=== PATIENT | male | born 1955 | race Caucasian/White ===

== ENCOUNTER 2017-03-27 14:16 | Inpatient (IN) | payer OTHER ==
[~2017-03-27] VITALS: Ht 177.8 cm; Wt 76.8 kg
--- NOTE | 2017-03-27 14:49 | ED UPPER/LOWER EXTREMITY COMPL ---
See Addendum History of Present Illness General Chief Complaint: Lower Extremity Problems Stated Complaint: RLE PAIN, NKI Source: patient Exam Limitations: no limitations Vital Signs & Intake/Output Vital Signs & Intake/Output Vital Signs Date Time Temp Pulse Resp B/P B/P Pulse O2 O2 Flow FiO2 Mean Ox Delivery Rate 03/279 120 24 98 03/27 1645 98.4 88 22 122/78 98 03/27 1508 Room Air 03/27 1423 98.2 141 20 121/84 95 Room Air Room Air Allergies Coded Allergies: No Known Allergies (03/27/17) Triage Note: PT TO ED FOR C/C OF R LEG PAIN THAT STARTED 2 DAYS AGO. PT DENIES INJURY TO THE LEG. PT RECENTLY DIAGNOSED WITH PANCREATIC CANCER 3 WEEKS AGO AND IS IN THE PROCESS OF MEETING WITH AN ONCOLOGIST. PT IS NOT BEING TREATED CURRENTLY FOR THE CA. THE LEG PAIN IS MOSTLY IN THE CALF AREA. ALSO REPORTS INCREASED SOB WITH EXERTION WHICH IS NOT TYPICAL FOR PT. PT TACHYCARDIC IN TRIAGE 140'S. PT SLIGHTLY TACHYPNIC WELL. Triage Nurses Notes Reviewed? yes HPI: Mr. Garcia is a 62-year-old male with a past medical history significant for nicotine dependence, suspected pancreatic and liver cancer who presents to the ED with bilateral lower extremity pain and dyspnea for last 3 days. He reports he noticed worsening SOB with going up and down the stairs. He is currently not working and has had a decrease in activity. He has a poor appetite and noticed about a 20 pound weight loss since last summer. Patient reports a few weeks ago he noticed his skin was jaundiced. He visited Dr. Britton Gibbs who performed an ERCP with stent placement in his CBD. His jaundice subsequently resolved. He had a follow up CT abd/pelvis that was suspicious for pancreatic cancer. He recently established care with Dr. Hawley and a pancreatic biopsy was taken but has not received the results. Patient reports he had a colonoscopy last week with a polypectomy but yet to receive the results. He is currently not on chemotherapy or radiation. He also reports he stopped taking his metformin for 2 days in preparation for any further medical intervention. He denies trauma, CP, palpitations, fever, chills, lower extremity swelling, nausea, vomiting, urinary or bowel symptoms (Jordan ERICKSON,[facility]) Reconcile Medications Aspirin (Ecotrin*) 81 MG TABLET.DR 1 TAB PO DAILY HEART/BLOOD (Reported) Cholecalciferol (Vitamin D3) (Vitamin D) (Unknown Strength) TABLET (Unknown Dose) PO DAILY SUPPLEMENT (Reported) Metformin HCl (Metformin HCl ER) 500 MG TAB.ER.24H 1 TAB PO DAILY DM ( Reported) Multiple Vitamin (Multivitamins) 1 EACH TABLET 1 TAB PO DAILY SUPPLEMENT ( Reported) [place]-3 Fatty Acids/Fish Oil (Fish Oil 1,000 MG Softgel) (Unknown Strength) CAPSULE (Unknown Dose) PO DAILY SUPPLEMENT (Reported) Zolpidem Tartrate 5 MG TABLET 1 TAB PO QHS SLEEP (Reported) (Bethany ERICKSON,Tres Lerner) Past History Travel History Traveled to [place] past 21 day No Medical History Any Pertinent Medical History? see below for history Endocrine: ON METFORMIN FOR SUGAR CONTROL R/T PANCREATIC CA. Cancer(s): PANCREATIC CANCER Surgical History Surgical History: colon resection Psychosocial History What is your primary language Greek Tobacco Use: Current Daily Use Daily Tobacco Use Amount/Type: => 5 Cigarettes daily ETOH Use: denies use Illicit Drug Use: denies illicit drug use Family History Hx Contributory? Yes (Jordan ERICKSON,Kimberlyn) Review of Systems Review of Systems Constitutional: Reports: see HPI. (Jordan ERICKSON,Kimberlyn) Physical Exam Physical Exam General Appearance: well developed/nourished, no apparent distress, alert, comfortable Head: atraumatic, normal appearance Eyes: Bilateral: normal appearance, PERRL, EOMI. Ears, Nose, Throat: normal pharynx, normal ENT inspection, hearing grossly normal Neck: normal inspection, supple, full range of motion Cardiovascular/Respiratory: normal breath sounds Gastrointestinal: normal BS, nontender, external hemorrhoids Leg Left: tenderness Leg Right: tenderness Comments: Guaiac negative (Jordan ERICKSON,Kimberlyn) Progress Differential Diagnosis: arterial insufficiency, cellulitis, DVT Plan of Care: Orders Procedure Date/time Status Regular Diet 03/28 B Active Heart Healthy Diet 03/27 D Complete Admit to inpatient 03/27 1931 Active ED Holding Orders 03/27 185 Active Code Status 03/27 1857 Active Patient Data 03/27 1853 Active Lab Add-on Test 03/27 1825 Active Lab Add-on Test 03/27 1822 Active TROPONIN LEVEL 03/27 1800 Complete TROPONIN LEVEL 03/27 1505 Complete PARTIAL THROMBOPLASTIN TIME 03/27 1505 Complete PROTHROMBIN TIME 03/27 1505 Complete LIPASE 03/27 1505 Complete HEPATIC FUNCTION PANEL 03/27 1505 Complete AMYLASE 03/27 1505 Complete Add-on Test (ER Only) 03/27 1500 Active D-DIMER 03/27 1500 Complete CBC WITHOUT DIFFERENTIAL 03/27 1500 Complete BASIC ELECTROLYTES PLUS BUN&CR 03/27 1500 Complete EKG 03/27 1432 Active Misc Message 03/27 UNK Active Vital Signs 03/27 UNK Active Current Medications Sig/Elijah Start time Last Medication Dose Stop Time Status Admin Heparin Sodium 25,000 UNIT Q24H 03/27 1700 UNVr 03/27 (Porcine) 1753 (Heparin) Sodium Chloride 500 ML Morphine Sulfate 2 MG ONCE ONE 03/27 1500 CAN (Morphine) 03/27 1501 Laboratory Tests 03/27/17 1840: Troponin I 0.04 03/27/17 1505: Anion Gap 16, Estimated GFR > 60, BUN/Creatinine Ratio 12.9, Total Bilirubin 1.6 H, Direct Bilirubin 1.0 H, AST 28, ALT 38, Alkaline Phosphatase 298 H, Troponin I < 0.01, Total Protein 6.9, Albumin 4.0, Amylase 31, Lipase 99, PT 14.4 H, INR 1.38 H, APTT 36, D-Dimer High Sensitivty 27897 H, CBC w Diff MAN DIFF ORDERED, RBC 4.97, MCV 100.9 H, MCH 33.9 H, MCHC 33.6, RDW 13.0, MPV 9.1, Gran % 82.9 H, Lymphocytes % 9.2 L, Monocytes % 7.0, Eosinophils % 0.8, Basophils % 0.1, Absolute Granulocytes 15.2 H, Absolute Lymphocytes 1.7, Absolute Monocytes 1.3 H, Absolute Eosinophils 0.1, Absolute Basophils 0, Platelet Estimate ADEQUATE, Normochromic RBCs VERIFIED, Macrocytic Cells 1+ Initial ED EKG: sinus tachycardia, [id number] Comments: 03/27/2017 6:30 pm vascular surgery service called for further evaluation of extensive DVT (Jordan ERICKSON,Kimberlyn) Comments: 03/27/2017 4:31:34 PM PER RADIOLOGIST: EXTENSIVE THROMBUS RLE, SUPERFICIAL ON LLE, CHEST EXTENSIVE PE. NO SADDLE OR RIGHT HEART STRAIN. 03/27/2017 5:12:35 PM IV heparin ordered. Patient remains clinically and hemodynamically stable. He has no specific complaint at this time. He has been updated on exam findings. I do not feel he requires TPA. Awaiting callback from hospitalist. 03/27/2017 5:56:48 PM awaiting callback from hospitalist. (Bethany ERICKSON,Tres Lerner) Departure Departure Condition: Stable Clinical Impression Primary Impression: Pulmonary emboli Qualifiers: Pulmonary embolism type: other Chronicity: unspecified Acute cor pulmonale presence: without acute cor pulmonale Qualified Code: I26.99 - Other pulmonary embolism without acute cor pulmonale Secondary Impressions: DVT (deep venous thrombosis) Qualifiers: DVT location: lower extremity Affected thrombotic vein of extremity : other lower extremity vein Chronicity: unspecified Laterality: unspecified laterality Qualified Code: I82.499 - Acute embolism and thrombosis of other specified deep vein of unspecified lower extremity Referrals: Kathy Silva MD (PCP/Family) Departure Forms: Customer Survey General Discharge Information Admission Note Spoke With: Zulma Julian MD Documentation of Exam: Documentation of any treatments & extenuating circumstances including Concerns Regarding Discharge (functional status, medication knowledge or non-compliance, living conditions, etc.) that warrant an admission rather than observation: Given patient's history and extensive DVT patient is a poor candidate for outpatient management, patient's condition may result in worsening respiratory failure and/or , patient will require vascular consultation, IV heparin, telemetry monitoring (Kimberlyn Ortega MD) Departure Disposition: STILL A PATIENT Admission Note Documentation of Exam: Documentation of any treatments & extenuating circumstances including Concerns Regarding Discharge (functional status, medication knowledge or non-compliance, living conditions, etc.) that warrant an admission rather than observation: Resident Co-Sign Statement Statement: ED Attending supervision documentation- [x] I saw and evaluated the patient. I have also reviewed all the pertinent lab results and diagnostic results. I agree with the findings and the plan of care as documented in the Resident's documentation. Patient presents for evaluation of worsening right calf pain. History of recent diagnosis of pancreatic cancer. Patient also experienced shortness of breath when walking up the stairs. Physical examination reveals tenderness of the proximal right calf and popliteal fossa. [] I have reviewed the ED Record and agree with the Resident's documentation. [] Additions or exceptions (if any) to the Resident's note and plan are summarized below: [] (Bethany ERICKSON,Tres Lerner) Critical Care Note Critical Care Note Critical Care Time: 30-74 min (Bethany ERICKSON,Tres Lerner)
[2017-03-27 15:12] LABS: ABSOLUTE BASOPHIL COUNT 0 /CUMM (0.0-0.2); ABSOLUTE EOSINOPHIL COUNT 0.1 /CUMM (0.0-0.7); ABSOLUTE GRANULOCYTE CT 15.2 /CUMM (1.4-6.5); ABSOLUTE LYMPH COUNT 1.7 /CUMM (1.2-3.4); ABSOLUTE MONOCYTE COUNT 1.3 /CUMM (0.10-0.60); BASOPHIL % 0.1 % (0.0-2.0); EOSINOPHIL % 0.8 % (0-5); GRANULOCYTE % 82.9 % (42.2-75.2); HEMATOCRIT 50.1 % (42-52); MEAN CORPUSCULAR HGB 33.9 PG (27.0-31.0); MEAN CORPUSCULAR HGB CONC 33.6 G/DL (33.0-37.0); MEAN CORPUSCULAR VOLUME 100.9 FL (80.0-94.0); MEAN PLATELET VOLUME 9.1 FL (7.4-10.4); PLATELET COUNT 167 /CUMM (130-400); RED BLOOD CELL CT 4.97 /CUMM (4.70-6.10); WHITE BLOOD CELL COUNT 18.3 /CUMM (4.8-10.8)
[2017-03-27] MEDS ORDERED: ZOLPIDEM TARTRAT5 M1 PO (15:25)
[2017-03-27] MEDS ORDERED: METFORMIN HCL500 M4 PO (15:25)
[2017-03-27] MEDS ORDERED: MULTIVITAMINS1 EAC9 PO (15:26)
[2017-03-27] MEDS ORDERED: FISH OIL 1,0001 EAC1 PO (15:26)
[2017-03-27] MEDS ORDERED: VITAMIN D1000 UNIT PO (15:26)
[2017-03-27] MEDS ORDERED: ASPIRIN EC81 M1 PO (15:27)
--- NOTE | 2017-03-27 16:35 | ULTRASOUND REPORT ---
EXAMINATION: US TRIPLEX OF LOWER EXTREMITIES, BILATERAL CLINICAL INFORMATION: Postop. Leg tenderness. COMPARISON: None TECHNIQUE: Color-flow triplex imaging with spectral analysis and compression Doppler were performed on the lower extremities. FINDINGS: There is diffuse occlusive thrombus in the right lower extremity from the groin through the popliteal fossa.. Thrombus extends into the upper calf veins. There is no thrombus of the deep veins left lower extremity. There is however thrombus in the greater saphenous vein at the upper thigh. There is no Lauren's cyst. IMPRESSION: 1. Right lower extremity. Extensive occlusive thrombus from the groin through the upper calf. 2. Left lower extremity: Thrombus in the greater saphenous vein in the upper medial thigh but no deep vein thrombosis. This critical result was discussed with Dr. Gleason on 03/27/2017, 4:30 PM and it was ascertained that the content and urgency of the report was understood at the time of direct communication.
--- NOTE | 2017-03-27 16:51 | CT SCAN REPORT ---
EXAMINATION: CT ANGIOGRAM CHEST WITHOUT AND WITH CONTRAST (CT PULMONARY ANGIOGRAM FOR PE) CLINICAL INFORMATION: Shortness of breath, right leg pain, history of cancer. COMPARISON: CT scan abdomen and pelvis 01/14/2017. Ultrasound liver biopsy 03/19/2017. TECHNIQUE: Prior to contrast administration, noncontrast localization images were obtained. Subsequently, multidetector volumetric imaging was performed from the thoracic inlet to below the diaphragms following the administration of 95 mL Optiray 320 intravenous contrast. No contrast reaction reported. Sagittal, coronal, and MIP oblique sagittal reformatted images were obtained on the CT workstation, uploaded to PACS, and reviewed. TOTAL EXAM DLP: 359.86 mGy-cm. FINDINGS: QUALITY OF STUDY/CONTRAST BOLUS: Satisfactory PULMONARY ARTERIES: There are bilateral pulmonary emboli. Extensive emboli are seen in the distal right pulmonary artery extending into the secondary and tertiary branches of the right lower lobe and right upper lobe. There are small emboli also in the left lower lobe involving the tertiary and more peripheral pulmonary arterial branches. Small emboli also in the pulmonary arteries of the lingula and left upper lobe distally. THORACIC AORTA: No aneurysm or dissection. LUNG: Small patchy parenchymal consolidation dependent right lower lobe at the costophrenic angle. PLEURA: No pleural effusion or pneumothorax. MEDIASTINUM: Normal heart size. No pericardial effusion. No hilar or mediastinal lymphadenopathy. No evidence of septal bowing or right heart strain. CHEST WALL/AXILLA: No axillary or internal mammary lymphadenopathy. OSSEOUS STRUCTURES: Degenerative spondylosis of spine with multilevel endplate spurring of the vertebrae. UPPER ABDOMEN: Stent in the CBD. There is pneumobilia in the liver. There are multiple focal low attenuating masses in the liver. Largest in the posterior right lobe measuring 2 cm. The left adrenal gland is full, but without distinct nodule. Right adrenal gland is normal. IMPRESSION: 1. Bilateral pulmonary emboli. 2. Multiple liver masses consistent with metastatic disease. CBD stent in place with pneumobilia. 3. Small right lower lobe infiltrate at the dependent right lung. This critical result was discussed with Dr. Gleason on 03/27/2017, 4:30 PM and it was ascertained that the content and urgency of the report was understood at the time of direct communication. VTE: Positive
[2017-03-27 18:51] LABS: PT 14.4 SEC (9.4-12.5); PTT 36 SEC (25-37)
--- NOTE | 2017-03-27 19:15 | Cons- Vascular Surgery ---
Sabra Cobos 03/27/17 1912: General Information and HPI Consulting Request Date of Consult: 03/27/17 Requested By: ED Reason for Consult: PE and DVT History of Present Illness: 62M newly diagnosed with pancreatic cancer, likely metastatic to liver, presents to ED c/o severe right leg pain worsening over last few days. Was trying to wait until onc appt tomorrow, but pain was so severe that he presented to ED. Denies CP or SOB now, though does admit to SOB on exertion and general fatigue. Denies hx VTE or clotting disorders, denies surgical hx other than recent IR liver biopsy and colonoscopy this month. Denies n/v/f/c, though is anxious during this interview. Of note, he is awaiting pathology results from recent liver bx from Dr. Hawley, and is unaware that it is adenocarcinoma. Allergies/Medications Allergies: Coded Allergies: No Known Allergies (03/27/17) Past History Medical History Endocrine: takes metformin 2/2 panc ca glucose control Cancer(s): pancreatic cancer (liver mets) Psychosocial History Services at Home: None Smoking Status: Current Everyday Smoker (1 ppd x25yrs) ETOH Use: occasional use (2x/week) Illicit Drug Use: denies illicit drug use Functional Ability Ambulation: independent Exam & Diagnostic Data Vital Signs and I&O Vital Signs Date Time Temp Pulse Resp B/P B/P Pulse O2 O2 Flow FiO2 Mean Ox Delivery Rate 03/27 1645 98.4 88 22 122/78 98 03/27 1508 Room Air 03/27 1423 98.2 141 20 121/84 95 Room Air Room Air Intake & Output 03/27 1600 03/27 0800 03/27 0000 03/26 1600 03/26 0800 03/26 0000 Intake Total Output Total Balance Patient 178 lb Weight Weight Reported by Patient Measurement Method Physical Exam: GEN- NAD, awake, alert, orientated CARD- s1s2 tachy PULM- CTAB ABD- nt, nd, soft EXT- palp dp/pt bl, calves soft bl, right lower calf ttp, skin intact without lesions Last 24 Hours of Labs: Laboratory Tests 03/27 03/27 1840 1505 Chemistry Sodium (137 - 145 mmol/L) 139 Potassium (3.5 - 5.1 mmol/L) 4.1 Chloride (98 - 107 mmol/L) 99 Carbon Dioxide (22 - 30 mmol/L) 24 Anion Gap (5 - 16) 16 BUN (9 - 20 mg/dL) 9 Creatinine (0.7 - 1.2 mg/dL) 0.7 Estimated GFR (>60 ml/min) > 60 BUN/Creatinine Ratio (7 - 25 %) 12.9 Total Bilirubin (0.2 - 1.3 mg/dL) 1.6 H Direct Bilirubin (< 0.4 mg/dL) 1.0 H AST (17 - 59 U/L) 28 ALT (21 - 72 U/L) 38 Alkaline Phosphatase (< 127 U/L) 298 H Troponin I (<0.11 ng/ml) Pending < 0.01 Total Protein (6.3 - 8.2 g/dL) 6.9 Albumin (3.5 - 5.0 g/dL) 4.0 Amylase (30 - 110 U/L) 31 Lipase (23 - 300 U/L) 99 Coagulation PT (9.4 - 12.5 SEC) 14.4 H INR (0.90 - 1.17) 1.38 H APTT (25 - 37 SEC) 36 D-Dimer High Sensitivty (0 - 243 ng/ml) 87655 H Hematology CBC w Diff MAN DIFF ORDERED WBC (4.8 - 10.8 /CUMM) 18.3 H RBC (4.70 - 6.10 /CUMM) 4.97 Hgb (14.0 - 18.0 G/DL) 16.9 Hct (42 - 52 %) 50.1 MCV (80.0 - 94.0 FL) 100.9 H MCH (27.0 - 31.0 PG) 33.9 H MCHC (33.0 - 37.0 G/DL) 33.6 RDW (11.5 - 14.5 %) 13.0 Plt Count (130 - 400 /CUMM) 167 MPV (7.4 - 10.4 FL) 9.1 Gran % (42.2 - 75.2 %) 82.9 H Lymphocytes % (20.5 - 51.1 %) 9.2 L Monocytes % (1.7 - 9.3 %) 7.0 Eosinophils % (0 - 5 %) 0.8 Basophils % (0.0 - 2.0 %) 0.1 Absolute Granulocytes (1.4 - 6.5 /CUMM) 15.2 H Absolute Lymphocytes (1.2 - 3.4 /CUMM) 1.7 Absolute Monocytes (0.10 - 0.60 /CUMM) 1.3 H Absolute Eosinophils (0.0 - 0.7 /CUMM) 0.1 Absolute Basophils (0.0 - 0.2 /CUMM) 0 Platelet Estimate (ADEQUATE) ADEQUATE Normochromic RBCs VERIFIED Macrocytic Cells 1+ Imaging Results: SERVICE DATE: 03/27/17-1520 EXAM TYPE: US - US-EXT BILAT VENOUS DOPPLER EXAMINATION: US TRIPLEX OF LOWER EXTREMITIES, BILATERAL CLINICAL INFORMATION: Postop. Leg tenderness. COMPARISON: None TECHNIQUE: Color-flow triplex imaging with spectral analysis and compression Doppler were performed on the lower extremities. FINDINGS: There is diffuse occlusive thrombus in the right lower extremity from the groin through the popliteal fossa.. Thrombus extends into the upper calf veins. There is no thrombus of the deep veins left lower extremity. There is however thrombus in the greater saphenous vein at the upper thigh. There is no Lauren's cyst. IMPRESSION: 1. Right lower extremity. Extensive occlusive thrombus from the groin through the upper calf. 2. Left lower extremity: Thrombus in the greater saphenous vein in the upper medial thigh but no deep vein thrombosis. SERVICE DATE: 03/27/17-1448 EXAM TYPE: CAT - CTA CHEST-PULMONARY EMBOLISM EXAMINATION: CT ANGIOGRAM CHEST WITHOUT AND WITH CONTRAST (CT PULMONARY ANGIOGRAM FOR PE) CLINICAL INFORMATION: Shortness of breath, right leg pain, history of cancer. COMPARISON: CT scan abdomen and pelvis 01/14/2017. Ultrasound liver biopsy 03/19/2017. TECHNIQUE: Prior to contrast administration, noncontrast localization images were obtained. Subsequently, multidetector volumetric imaging was performed from the thoracic inlet to below the diaphragms following the administration of 95 mL Optiray 320 intravenous contrast. No contrast reaction reported. Sagittal, coronal, and MIP oblique sagittal reformatted images were obtained on the CT workstation, uploaded to PACS, and reviewed. TOTAL EXAM DLP: 359.86 mGy-cm. FINDINGS: QUALITY OF STUDY/CONTRAST BOLUS: Satisfactory PULMONARY ARTERIES: There are bilateral pulmonary emboli. Extensive emboli are seen in the distal right pulmonary artery extending into the secondary and tertiary branches of the right lower lobe and right upper lobe. There are small emboli also in the left lower lobe involving the tertiary and more peripheral pulmonary arterial branches. Small emboli also in the pulmonary arteries of the lingula and left upper lobe distally. THORACIC AORTA: No aneurysm or dissection. LUNG: Small patchy parenchymal consolidation dependent right lower lobe at the costophrenic angle. PLEURA: No pleural effusion or pneumothorax. MEDIASTINUM: Normal heart size. No pericardial effusion. No hilar or mediastinal lymphadenopathy. No evidence of septal bowing or right heart strain. CHEST WALL/AXILLA: No axillary or internal mammary lymphadenopathy. OSSEOUS STRUCTURES: Degenerative spondylosis of spine with multilevel endplate spurring of the vertebrae. UPPER ABDOMEN: Stent in the CBD. There is pneumobilia in the liver. There are multiple focal low attenuating masses in the liver. Largest in the posterior right lobe measuring 2 cm. The left adrenal gland is full, but without distinct nodule. Right adrenal gland is normal. IMPRESSION: 1. Bilateral pulmonary emboli. 2. Multiple liver masses consistent with metastatic disease. CBD stent in place with pneumobilia. 3. Small right lower lobe infiltrate at the dependent right lung. VTE: Positive Assessment/Plan Assessment/Plan A- 62yoM with metastatic pancreatic ca, with BL PE and RLE DVT, stable. P- - no surgical intervention at this time in setting of cancer - recommend anticoagulation for VTE tx - CODY stockings - fu as outpt in [address] Rayray Bryan for repeat imaging - dw Dr. Bryan. Please call if further vascular input needed Consult Acknowledgment - Thank you for your consult request. Rayray Bryan MD 03/30/17 1151: General Information and HPI Allergies/Medications Home Med List: Apixaban (Eliquis) 5 MG TABLET 0 PO SEE ADMIN CRITERIA BLOOD THINNER FOR PE, DVT TAKE TWO TAB TWICE DAILY FOR SEVEN DAYS (03/29/17-04/04/17). THEN TAKE ONE TAB TWICE DAILY FROM 04/05/17 ONWARDS. TO CONTINUE. Aspirin (Ecotrin*) 81 MG TABLET. 1 TAB PO DAILY HEART/BLOOD (Reported) Cholecalciferol (Vitamin D3) (Vitamin D) 1,000 UNIT TABLET 1 TAB PO DAILY SUPPLEMENT (Reported) Metformin HCl (Metformin HCl ER) 500 MG TAB.ER.24H 1 TAB PO DAILY DM ( Reported) Multiple Vitamin (Multivitamins) 1 EACH TABLET 1 TAB PO DAILY SUPPLEMENT ( Reported) [place]-3 Fatty Acids/Fish Oil (Fish Oil 1,000 MG Softgel) (Unknown Strength) CAPSULE (Unknown Dose) PO DAILY SUPPLEMENT (Reported) Oxycodone HCl/Acetaminophen (Percocet 5-325 MG Tablet) 5 MG-325 MG TABLET 1 TAB PO Q8 PRN PAIN . Zolpidem Tartrate 5 MG TABLET 1 TAB PO QHS SLEEP (Reported) Exam & Diagnostic Data Vital Signs and I&O Vital Signs Date Time Temp Pulse Resp B/P B/P Pulse O2 O2 Flow FiO2 Mean Ox Delivery Rate 03/29 1441 97.9 114 20 132/70 95 Room Air Intake & Output 03/30 1600 03/30 0800 03/30 0000 03/29 1600 03/29 0800 03/29 0000 Intake Total 900 305 450 Output Total Balance 900 305 450 Intake, IV 100 185 100 Intake, Oral 800 120 350 Number 0 Bowel Movements Patient 76.799 kg Weight Assessment/Plan Consult Acknowledgment - Thank you for your consult request. Attending MD Review Statement Attending Statement Attending MD Statement: agreed w/resident/PA/[employer] SUPERVISOR Attending Assessment/Plan: He has right leg DVT with left leg STP, along with pulmonary emboli. Given his active malignancy, he is at extremely high risk for clot propagation, and needs to be treated with anticoagulation to decrease risk of clot propagation, especially in the pulmonary arteries. Venous recanalization is contraindicated given the active malignancy, due to the significant risk of tumor bleeding with thrombolytic therapy, even if catheter directed. No indication for caval interruption as long as he can be maintained on anticoagulation. Compression, mobilization encouraged once on anticoagulation. Surveillance duplex in 1 week.
--- NOTE | 2017-03-27 20:38 | History & Physical ---
Sincere Vega 03/27/172037: General Information and HPI MD Statement: I have seen and personally examined VIRAJ DOMINGUEZ and documented this H&P. The patient is a 62 year old M who presented with a patient stated chief complaint of Source of Information: patient, family Exam Limitations: no limitations History of Present Illness: Mr Snell is a 62 year old man who was know to be in his usual state of health until a few months ago. He came in to the ER w/ a chief concern of pain in his right lower extremity that started two days ago. He has not seen a physician in over 20 yrs, and was diagnsosed w/ HLD and T2DM a few months ago by his new PCP, Dr Silva. Approximately 3-4 months ago, he noticed that he had moderate fatigue, unintentinal weight loss 10-15 lbs, dark urine, ligh stools, jaundice and intermittent brbpr. He was seen in the ER on 01/13/2017 when he was found to have bilirubin of 21.[address] scan abdomen showed ill-defined 3cm lesion in pancreatic head producing both hepatic and pancreatic ductal dilation. He underwent ERCP with sphincterotomy, brush cytology and stenting of CBD by Dr. Britton Gibbs for the tx of CBD stricuture. Cytology results revealed s/o ductal adenocarcinoma. As a follow up, he underwent his first screening colonocopy which revealed a polyp ( pathology pending ), an no other suspicious lesions; also had a liver biopsy that revealed moderatedly differentiated adenocarcinoma which were cytokeratin 7 positive, and weakly positive for cytokeratin 20, and negative for cdx 2 with no clear primary origin, likely biliary but clearly negative GI. In the last few days, he has been having pain in his lower extremities R>L, but did not have any injury or prolonged bed rest, however reported decreased activity in the last few weeks. No erythema, but reported mild swelling of this right calf and mild pedal edema. He reported dyspnea while doing daily chores, that progressed in the last few weeks to dyspnea at rest. No chest pain, palpitations. No syncope or loss of consciousness. Current smoker w/ 40 plus pk yr history and occassional alcohol use. Family Hx of kidney cancer in mother, but no pancreatic Ca or GI cancers. No occupational exposures. Allergies/Medications Allergies: Coded Allergies: No Known Allergies (03/27/17) Home Med list Aspirin (Ecotrin*) 81 MG TABLET.DR 1 TAB PO DAILY HEART/BLOOD (Reported) Cholecalciferol (Vitamin D3) (Vitamin D) 1,000 UNIT TABLET 1 TAB PO DAILY SUPPLEMENT (Reported) Metformin HCl (Metformin HCl ER) 500 MG TAB.ER.24H 1 TAB PO DAILY DM ( Reported) Multiple Vitamin (Multivitamins) 1 EACH TABLET 1 TAB PO DAILY SUPPLEMENT ( Reported) Hickman-3 Fatty Acids/Fish Oil (Fish Oil 1,000 MG Softgel) (Unknown Strength) CAPSULE (Unknown Dose) PO DAILY SUPPLEMENT (Reported) Zolpidem Tartrate 5 MG TABLET 1 TAB PO QHS SLEEP (Reported) Past History Travel History Traveled to [place] past 21 day No Medical History Neurological: NONE EENT: NONE Cardiovascular: NONE Respiratory: NONE Gastrointestinal: PANCREATIC CANCER Hepatic: NONE Renal: NONE Musculoskeletal: NONE Psychiatric: NONE Endocrine: takes metformin 2/2 panc ca glucose control Cancer(s): pancreatic cancer (liver mets) Surgical History Surgical History: cbd stent Past Family/Social History Family History Relations & Conditions if any MOTHER (kidney cancer). Psychosocial History Services at Home: None Smoking Status: Current Everyday Smoker (1 ppd x25yrs) ETOH Use: occasional use (2x/week) Illicit Drug Use: denies illicit drug use Functional Ability ADLs Independent: dressing, eating, toileting, bathing. Ambulation: independent IADLs Independent: shopping, housework, finances, food prep, telephone, transportation , medication admin. Review of Systems Review of Systems Constitutional: Reports: see HPI. Denies: chills, fever. EENTM: Denies: blurred vision. Cardiovascular: Denies: chest pain, palpitations. Respiratory: Denies: cough, hemoptysis, short of breath. GI: Denies: abdominal pain, diarrhea, melena, bloody stool. Genitourinary: Denies: discharge. Musculoskeletal: Denies: back pain. Skin: Reports: change in skin color. Denies: change in hair/nails. Neurological/Psychological: Denies: anxiety, headache, pre-existing deficit, tingling. Hematologic/Endocrine: Denies: bruising, bleeding. Exam & Diagnostic Data Last 24 Hrs of Vital Signs/I&O Vital Signs Date Time Temp Pulse Resp B/P B/P Pulse O2 O2 Flow FiO2 Mean Ox Delivery Rate 03/27 2213 98.3 120 22 148/90 97 Room Air 03/27 2000 83 20 134/69 97 Room Air 03/27 1929 120 24 98 03/27 1645 98.4 88 22 122/78 98 03/27 1508 Room Air 03/27 1423 98.2 141 20 121/84 95 Room Air Room Air Intake & Output 03/27 1600 03/27 0800 02 0000 Intake Total Output Total Balance Patient 178 lb Weight Weight Reported by Patient Measurement Method Physical Exam General Appearance Alert, Oriented X3, Cooperative, No Acute Distress Skin No Rashes, No Breakdown Skin Temp/Moisture Exam: Warm/Dry Sepsis Skin Exam (color): Normal for Ethnicity, Jaundiced HEENT Atraumatic, PERRLA, EOMI, Mucous Membr. moist/pink Neck Supple, No JVD, No thryomegaly, +2 Carotid Pulse wo Bruit, No LAD Lymphatic Axillary nl, Cervical nl Cardiovascular Regular Rate, Normal S1, Normal S2, No Murmurs, Gallops Lungs Normal Air Movement, crackles on the right side of the lung Abdomen Normal Bowel Sounds, Soft, No Tenderness, No Hepatospenomegaly Neurological Normal Speech, Strength at 5/5 X4 Ext, Normal Tone, Sensation Intact, Cranial Nerves 3-12 NL, Reflexes 2+ Extremities No Clubbing, No Cyanosis, Normal Pulses, No Tenderness/Swelling, pedal edema 1+ Vascular Normal Pulses, Pulses Symmetrical Sepsis Peripheral Pulse Location: Dorsalis Pedis Sepsis Peripheral Pulse Exam: Normal Sepsis Cap Refill Exam: <2 Sec Body Front and Back (Adult) 1) Swelling of calf R>L Last 24 Hrs of Labs/Art: Laboratory Tests 03/27/17 1840: Troponin I 0.04 03/27/17 1505: Anion Gap 16, Estimated GFR > 60, BUN/Creatinine Ratio 12.9, Calcium 9.7, Phosphorus 2.6, Magnesium 1.9, Total Bilirubin 1.6 H, Direct Bilirubin 1.0 H, AST 28, ALT 38, Alkaline Phosphatase 298 H, Troponin I < 0.01, Pro-B- Natriuretic Pept 187 H, Total Protein 6.9, Albumin 4.0, Amylase 31, Lipase 99, PT 14.4 H, INR 1.38 H, APTT 36, D-Dimer High Sensitivty 47646 H, CBC w Diff MAN DIFF ORDERED, RBC 4.97, MCV 100.9 H, MCH 33.9 H, MCHC 33.6, RDW 13.0, MPV 9.1, Gran % 82.9 H, Lymphocytes % 9.2 L, Monocytes % 7.0, Eosinophils % 0.8, Basophils % 0.1, Absolute Granulocytes 15.2 H, Absolute Lymphocytes 1.7, Absolute Monocytes 1.3 H, Absolute Eosinophils 0.1, Absolute Basophils 0, Platelet Estimate ADEQUATE, Normochromic RBCs VERIFIED, Macrocytic Cells 1+ Microbiology 03/27 2311 UPPER RESP: Surveillance Culture - ORD 03/27 2311 GI: Surveillance Culture - ORD Diagnostic Data EKG Results EKG revealed NSR [id number] No STTWI Other Results CT ANGIOGRAM CHEST WITHOUT AND WITH CONTRAST 1. Bilateral pulmonary emboli. 2. Multiple liver masses consistent with metastatic disease. CBD stent in place with pneumobilia. 3. Small right lower lobe infiltrate at the dependent right lung. This critical result was discussed with Dr. Gleason on 03/27/2017, 4:30 PM and it was ascertained that the content and urgency of the report was understood at the time of direct communication. VTE: Positive US TRIPLEX OF LOWER EXTREMITIES, BILATERAL 1. Right lower extremity. Extensive occlusive thrombus from the groin through the upper calf. 2. Left lower extremity: Thrombus in the greater saphenous vein in the upper medial thigh but no deep vein thrombosis. Assessment/Plan Assessment: Mr Dominguez, is a 62 year old man w/ a PMHx of type 2 diabetes, HLD, recent diagnosis of ductal adenocarcinoma w/ 3cm lesion in pancreatic head producing both hepatic and pancreatic ductal dilation s/p ERCP with sphincterotomy, brush cytology and stenting of CBD by Dr. Britton Gibbs for the tx of CBD stricuture and liver biopsy that revealed moderatedly differentiated adenocarcinoma came in for evaluation of pain in her lower extremities R>L, and worsening dyspnea likely secondary to bilateral DVT and PE. Vitals at the time of admission temp 98.2, HR 120-140, RR 20, 95 % RA. Pertinent lab findings: wbc 18.3 ( 82% granulocytosis ), Hb 16.9, platelets 167, MCV 100.9(macrocytosis) Na 139, K 4.1, Ca 9.7, Renal function BUN 9, Sr Cr 0.7( likely malnutrion ) D dimer 16735, INR 1.38 Tbili 1.6 ( ~ 23 in 12/2016), AST 68, ALT 38, Alk phos 298. HbA1c 6.8 ( 12/2016) TG 703, Chol 375, LDL 191( 12/2016) CA 19-9 - 102. CTA revealed bilateral pulmonary emboli, and multiple liver masses consistent with metastatic disease. CBD stent in place with pneumobilia. Small right lower lobe infiltrate at the dependent right lung. US LE revelaed - RLE Extensive occlusive thrombus from the groin through the upper calf. LLE-Thrombus in the greater saphenous vein in the upper medial thigh but no deep vein thrombosis. Etiology for his venous embolism is clearly secondary to his malignancy, and would would benefit from lovenox or even a DOAC at the time of discharge. He doesnt have any family hx of thrombophilia, nor did he get worked up for that in the past, but very unlikely cause. He should get echocardiogram to assess the right heart strain, and vitals monitored closely in the ICU for any hypotension. Given his past history of recent dx of malignancy, it is unclear if aggressive thrombolytic tx is used, but defer the decision to the vascular surgery. In regards to his other pulmonary findings, he might have developed cor pulmonale or has pleural effusion secondary to PE; pneumonia is also in the diffential for which some preliminary lab work could be done such as legionella + strep ag testing/LRC cultures. Now about the malignancy, the details of which are not very clear with primary pancreatic or biliary adenocarcinoma seems more likely, immunochemistry markers for GI mets are negative making GI mets unlikely in his case. Plan: 1. Respiratory: Pulmonary embolism- bilateral. Intravenous heprain was started, which should be continued. If vitals become unstable, thrombectomy should be considered and in that case transfer to [place] to be initiated. Oxygen as needed. 2. Infectious- Leucocytosis w/ some granulocytosis. Monitor off abx for now. Check LRC. 3. Circulatory- Monitor BP closely. No anti-hypertensives for now. Check EKG and trops. Check Echocardiogram, and consider cardio if needed. 4. Hematology- He has malignancy of pancreas/biliary origin and would need tx. Defer the decision the oncologist to intitiate tx. Would benefit from lovenox or a DOAC. 5. Metabolic- Check HbA1c, Accuchecks, and novolog sliding scale. 6. Alimentaty- regular diet. Housekeepin. DVT Ppx- iv heparin 2. GI Ppx- Protonix 3. Full code 4 LInes-peripheral only 5 Waddell catheter- none 6. Vent- none. 7. Consults- Hem/onc called. Vascular As Ranked By This Provider Problem List: 1. DVT (deep venous thrombosis) Qualifiers DVT location: lower extremity Affected thrombotic vein of extremity: other lower extremity vein Chronicity: unspecified Laterality: unspecified laterality Qualified Code: I82.499 - Acute embolism and thrombosis of other specified deep vein of unspecified lower extremity 2. Pulmonary emboli Qualifiers Pulmonary embolism type: other Chronicity: unspecified Acute cor pulmonale presence: without acute cor pulmonale Qualified Code: I26.99 - Other pulmonary embolism without acute cor pulmonale Core Measures/Misc (11/10) Acute Coronary Syndrome ACS Diagnosis: No Congestive Heart Failure Congestive Heart Failure Diagnosis No Cerebrovascular Accident CVA/TIA Diagnosis: No VTE (View Protocol) VTE Risk Factors Cancer/chemo/othr therapy No Mechanical VTE Prophylaxis d/t N/A MechProphylax Ordered No VTE Pharm Prophylaxis d/t NA PharmProphylax ordered Sepsis (View protocol) Sepsis Present: No Zulma Julian 03/28/17 0348: Attending MD Review Statement Attending Statement Attending MD Statement: examined this patient, discuss w/resident/PA/SLICING MACHINE FEEDER, agreed w/resident/PA/SLICING MACHINE FEEDER, discussed with family, reviewed EMR data (avail), reviewed images, amended to note Attending Assessment/Plan: CC: Leg pain right more than left PMH: recently diagnosed DM Patient is under evaluation for suspected pancreatic or biliary cancer with liver metastases was awaiting liver biopsy results and discussion of plan with oncologist presented in ER for bilateral lower extremity pain right more than left since last 2 days, progressively worsening, more so with exertion, nonradiating. He also endorses dyspnea on exertion which is not very typical for him. He could not walk few steps without getting short of breath. He denies chest pain, chest tightness, palpitations, dizziness, LOC, presyncopal symptoms. Vitals: Afebrile, pulse 141 on arrival , RR 20, blood pressure 121/84, saturating 95% on room air On exam: A O 3, cooperative, no acute distress, neck supple, JVD normal, no lymphadenopathy, mucosa moist, no focal neurological deficit, Right leg edema, redness, mild inflammation right les CVS: S1-S2, RRR. RS: Clear to auscultate bilaterally. Abdomen: Soft, NT, ND, bowel sounds present. Labs: WBC 18.3, hemoglobin 16.9, hematocrit 50.1, platelets 167, MCV 100.9, neutrophils 82%, sodium 139, potassium 4.1, chloride 99, bicarbonate 24, BUN 9, creatinine 0.7, total bilirubin 1.6, direct bilirubin 1.0, AST 28, ALT 38, alkaline phosphatase 298, troponin less than 0.01, lipase 99, INR 1.38, d-dimer 42809 ECG: S1 Q3 T3 CTA chest 1. Bilateral pulmonary emboli. 2. Multiple liver masses consistent with metastatic disease. CBD stent in place with pneumobilia. 3. Small right lower lobe infiltrate at the dependent right lung. Bilateral lower extremity venous Doppler: 1. Right lower extremity. Extensive occlusive thrombus from the groin through the upper calf. 2. Left lower extremity: Thrombus in the greater saphenous vein in the upper medial thigh but no deep vein thrombosis. Assessment and plan 62 Y O M with Hx of recently diagnosed DM, and under evaluation for suspected pancreatic or biliary cancer with liver metastases was awaiting liver biopsy results and discussion of plan with oncologist presented in ER for bilateral lower extremity pain right more than left since last 2 days and SOB since one day. He is significantly tachycardic, right leg mild swelling, redness. He is found to have right lower extremity extensive DVT and great saphenous vein thrombosis on the left lower extremity. He also has bilateral pulmonary embolism with ECG changes. Reviewed previous records : CT scan abdomen pelvis with and without contrast done on 01/14/17 : Shows 3 cm lesion in pancreatic head causing hepatitic and pancreatic ductal dilatation concerning of pancreatic adenocarcinoma also 2 lesions were identified in liver concerning of metastasis. Patient underwent ERCP with stent to rectum he and brush cytology on 02/05/17: Biopsy result highly suggestive of adenocarcinoma. Patient underwent ultrasound guided liver biopsy on 03/19/17: Which showed moderately differentiated adenocarcinoma neoplastic cells positive for CK 7 and weakly positive for CK20, unclear primary probably pancreatic versus biliary. Patient also underwent colonoscopy on ; subcentimeter polyp from transverse colon was resected: tubular adenoma without evidence of invasive cancer. Patient was not aware of the liver biopsy results and was waiting for an appointment. Vascular surgery was consulted and patient was started on heparin drip. Patient's LFTs are markedly improved after the stent placement bilirubin improved from 22.9 10 1.6 today. Transaminitis resolved. I discussed with him at length about the cancer diagnosis, risks of pulmonary embolism, IV heparin side effects + Extensive DVT right lower extremity with bilateral pulmonary embolism in setting of newly diagnosed metastatic undifferentiated adenocarcinoma (probably biliary versus pancreatic) + DM + Leukocytosis reactive - admit to ICU - Continuous telemetry monitoring - Q1 hourly vitals - Monitor pulse ox - Serial troponin and EKGs - Add proBNP to sample in lab - Continue heparin drip - 2-D echocardiogram in a.m. - Consult oncology - Follow vascular opinion - Adequate pain control - Repeat labs in a.m. including LFT and lipid profile - Sliding scale insulin - Critical care consult
[2017-03-28] VITALS: BP 152/98
[2017-03-28 00:22] LABS: PTT 56 SEC (25-37)
--- NOTE | 2017-03-28 03:49 | Admission Certification ---
Admission Certification Certification Statement - As attending physician, I certify that at the time of - admission, based on clinical presentation, severity of - symptoms, need for further diagnostic testing and - therapeutic interventions, and risk of adverse outcomes - without in-hospital treatment, in my clinical assessment, - this patient requires an acute hospital stay for a minimum - of two nights or longer. I have also considered psychsocial - factors such as support system, advanced age, financial - issues, cognitive issues, and failed out-patient treatments, - past re-admission history, safety of patient, and lack of - compliance as applicable. Specific rationale supporting this admission is: Extensive right lower extremity DVT and bilateral pulmonary embolism in setting of metastatic adenocarcinoma
[2017-03-28 06:42] LABS: ABSOLUTE BASOPHIL COUNT 0.1 /CUMM (0.0-0.2); ABSOLUTE EOSINOPHIL COUNT 0.4 /CUMM (0.0-0.7); ABSOLUTE GRANULOCYTE CT 7.7 /CUMM (1.4-6.5); ABSOLUTE LYMPH COUNT 3.1 /CUMM (1.2-3.4); ABSOLUTE MONOCYTE COUNT 1.1 /CUMM (0.10-0.60); BASOPHIL % 0.5 % (0.0-2.0); EOSINOPHIL % 3.1 % (0-5); GRANULOCYTE % 62.7 % (42.2-75.2); MEAN CORPUSCULAR HGB CONC 32.8 G/DL (33.0-37.0); MEAN CORPUSCULAR VOLUME 100.8 FL (80.0-94.0); MEAN PLATELET VOLUME 8.9 FL (7.4-10.4); PLATELET COUNT 169 /CUMM (130-400); RBC DISTRIBUTION WIDTH 12.9 % (11.5-14.5); RED BLOOD CELL CT 4.24 /CUMM (4.70-6.10); WHITE BLOOD CELL COUNT 12.2 /CUMM (4.8-10.8)
[2017-03-28 06:45] LABS: HEMATOCRIT 42.7 % (42-52)
[2017-03-28 06:51] LABS: PTT 85 SEC (25-37)
--- NOTE | 2017-03-28 07:29 | Cons- Oncology ---
General Information and HPI Consulting Request Date of Consult: 03/28/17 Requested By: Zulma Julian MD History of Present Illness: 62-year-old man well known to me now admitted with right leg pain. Patient's recent course has been characterized by the finding of the pancreatic mass and liver abnormalities. Patient initially presented with jaundice requiring stent placement. Brushings of his common bile duct stricture revealed carcinoma in situ. Subsequent liver biopsy confirmed adenocarcinoma likely of hepatobiliary/ pancreatic origin. The patient now denies significant shortness of breath cough chest pain or hemoptysis. Allergies/Medications Allergies: Coded Allergies: No Known Allergies (03/27/17) Home Med List: Aspirin (Ecotrin*) 81 MG TABLET.DR 1 TAB PO DAILY HEART/BLOOD (Reported) Cholecalciferol (Vitamin D3) (Vitamin D) 1,000 UNIT TABLET 1 TAB PO DAILY SUPPLEMENT (Reported) Metformin HCl (Metformin HCl ER) 500 MG TAB.ER.24H 1 TAB PO DAILY DM ( Reported) Multiple Vitamin (Multivitamins) 1 EACH TABLET 1 TAB PO DAILY SUPPLEMENT ( Reported) [place]-3 Fatty Acids/Fish Oil (Fish Oil 1,000 MG Softgel) (Unknown Strength) CAPSULE (Unknown Dose) PO DAILY SUPPLEMENT (Reported) Zolpidem Tartrate 5 MG TABLET 1 TAB PO QHS SLEEP (Reported) Current Medications: Current Medications Sig/Elijah Start time Last Medication Dose Route Stop Time Status Admin Acetaminophen 650 MG Q8P PRN 03/27 2115 AC PO Aspirin Buffered 81 MG DAILY 03/28 1000 AC PO Cholecalciferol 1,000 IU DAILY 03/28 1000 AC PO Fish Oil 1,050 MG DAILY 03/28 1000 AC PO Heparin Sodium 3,072 UNIT BOLUS ONE 03/28 0037 DC 03/28 (Porcine) IV 03/28 0038 0100 Heparin Sodium 0 .STK-MED ONE 03/27 1750 DC (Porcine) .ROUTE Heparin Sodium 5,000 UNIT ONCE ONE 03/27 1730 DC 03/27 (Porcine) IV 03/27 1731 1753 Heparin Sodium 25,000 UNIT Q24H 03/27 1700 AC 03/27 (Porcine) IV 1753 Sodium Chloride 500 ML Insulin Aspart 0 TIDAC 03/28 0800 AC SC Lidocaine 1 PAT Q24H 03/27 2115 AC 03/27 EXT 2209 Morphine Sulfate 2 MG Q6P PRN 03/27 2130 AC 03/28 IV 0046 Morphine Sulfate 0 .STK-MED ONE 03/27 1943 DC .ROUTE Morphine Sulfate 2 MG ONCE ONE 03/27 1930 DC 03/27 IV 03/27 193 1958 Morphine Sulfate 0 .STK-MED ONE 03/27 1520 DC .ROUTE Morphine Sulfate 2 MG ONCE ONE 03/27 1500 CAN IM 03/27 1501 Morphine Sulfate 2 MG ONCE ONE 03/27 1500 DC 03/27 IV 03/27 1501 1520 Multivitamins 1 TAB DAILY 03/28 1000 AC Therapeutic PO Omeprazole 40 MG DAILY AC 03/28 0700 AC PO Oxycodone HCl 5 MG Q8P PRN 03/27 2130 AC 03/28 PO 0424 Zolpidem Tartrate 5 MG AT BEDTIME NEED.. 03/27 2200 AC PO Review of Systems Review of Systems: Patient denies headaches or dizziness. Patient denies nausea vomiting or abdominal pain. Patient denies dysuria or hematuria. Patient denies focal neurologic deficit Past History Travel History Traveled to [place] past 21 day No Medical History Blood Transfusion Hx: No Neurological: NONE EENT: NONE Cardiovascular: NONE Respiratory: NONE Gastrointestinal: PANCREATIC CANCER Hepatic: NONE Renal: NONE Musculoskeletal: NONE Psychiatric: NONE Endocrine: takes metformin 2/2 panc ca glucose control Cancer(s): pancreatic cancer (liver mets) Surgical History Surgical History: cbd stent Family History Relations & Conditions If Any: MOTHER (kidney cancer). Psychosocial History Where Do You Live? Home Services at Home: None Smoking Status: Current Everyday Smoker (1 ppd x25yrs) ETOH Use: occasional use (2x/week) Illicit Drug Use: denies illicit drug use Functional Ability ADLs Independent: dressing, eating, toileting, bathing. Ambulation: independent IADLs Independent: shopping, housework, finances, food prep, telephone, transportation , medication admin. Exam & Diagnostic Data Vital Signs and I&O Vital Signs Date Time Temp Pulse Resp B/P B/P Pulse O2 O2 Flow FiO2 Mean Ox Delivery Rate 03/28 0400 99 Room Air 03/28 0000 98 Room Air 03/28 0000 98.0 126 25 152/98 97 Room Air 03/27 2333 99.2 126 20 133/86 96 Room Air 03/273 98.3 120 22 148/90 97 Room Air 03/27 1999 83 20 134/69 97 Room Air 03/27 1929 120 24 98 03/27 1645 98.4 88 22 122/78 98 03/27 1508 Room Air 03/27 1423 98.2 141 20 121/84 95 Room Air Room Air Intake & Output 03/28 0800 03/28 0000 03/27 1600 Intake Total 1058 Output Total 550 Balance 508 Intake, IV 258 Intake, Oral 800 Number 0 Bowel Movements Output, Urine 550 Patient 169 lb 178 lb Weight Weight Bed scale Reported by Patient Measurement Method Gen.: in NAD ENT: Sclera anicteric Chest: Normal respiratory effort, decreased breath sounds Cor: RRR, no extra sounds Abdomen: Soft, bowel sounds present, no tenderness, no rebound, firm Extremities: Without clubbing, cyanosis, or asymmetric edema Neurology: Alert and oriented 3, no gross deficit Skin: No rashes Last 48 Hours of Lab Results: Laboratory Tests 03/28 03/28 03/28 0630 0630 0214 Chemistry Sodium (137 - 145 mmol/L) 137 Potassium (3.5 - 5.1 mmol/L) 3.5 Chloride (98 - 107 mmol/L) 103 Carbon Dioxide (22 - 30 mmol/L) 24 Anion Gap (5 - 16) 10 BUN (9 - 20 mg/dL) 9 Creatinine (0.7 - 1.2 mg/dL) 0.5 L Estimated GFR (>60 ml/min) > 60 Glucose (65 - 99 mg/dL) 127 H Calcium (8.4 - 10.2 mg/dL) 8.6 Phosphorus (2.5 - 4.5 mg/dL) 3.8 Magnesium (1.6 - 2.3 mg/dL) 2.0 Total Bilirubin (0.2 - 1.3 mg/dL) 1.0 AST (17 - 59 U/L) 23 ALT (21 - 72 U/L) 36 Troponin I (<0.11 ng/ml) 0.03 Albumin (3.5 - 5.0 g/dL) 3.0 L Triglycerides (<150 mg/dL) Cancelled 123 Cholesterol (< 200 MG/DL) Cancelled 134 LDL Cholesterol, Calc (65 - 129 mg/dL) Cancelled 68 HDL Cholesterol (40 - 60 mg/dL) Cancelled 42 Cholesterol/HDL Ratio (0.00 - 4.88 %) Cancelled 3 Coagulation APTT (25 - 37 SEC) 85 H Hematology CBC w Diff NO MAN DIFF REQ WBC (4.8 - 10.8 /CUMM) 12.2 H RBC (4.70 - 6.10 /CUMM) 4.24 L Hgb (14.0 - 18.0 G/DL) 14.0 Hct (42 - 52 %) 42.7 MCV (80.0 - 94.0 FL) 100.8 H MCH (27.0 - 31.0 PG) 33.0 H MCHC (33.0 - 37.0 G/DL) 32.8 L RDW (11.5 - 14.5 %) 12.9 Plt Count (130 - 400 /CUMM) 169 MPV (7.4 - 10.4 FL) 8.9 Gran % (42.2 - 75.2 %) 62.7 Lymphocytes % (20.5 - 51.1 %) 25.0 Monocytes % (1.7 - 9.3 %) 8.7 Eosinophils % (0 - 5 %) 3.1 Basophils % (0.0 - 2.0 %) 0.5 Absolute Granulocytes (1.4 - 6.5 /CUMM) 7.7 H Absolute Lymphocytes (1.2 - 3.4 /CUMM) 3.1 Absolute Monocytes (0.10 - 0.60 /CUMM) 1.1 H Absolute Eosinophils (0.0 - 0.7 /CUMM) 0.4 Absolute Basophils (0.0 - 0.2 /CUMM) 0.1 03/27 03/27 03/27 2354 1840 1505 Chemistry Sodium (137 - 145 mmol/L) 139 Potassium (3.5 - 5.1 mmol/L) 4.1 Chloride (98 - 107 mmol/L) 99 Carbon Dioxide (22 - 30 mmol/L) 24 Anion Gap (5 - 16) 16 BUN (9 - 20 mg/dL) 9 Creatinine (0.7 - 1.2 mg/dL) 0.7 Estimated GFR (>60 ml/min) > 60 BUN/Creatinine Ratio (7 - 25 %) 12.9 Glucose (65 - 99 mg/dL) 179 H Hemoglobin A1c (4.2 - 5.8 %) Pending Calcium (8.4 - 10.2 mg/dL) 9.7 Phosphorus (2.5 - 4.5 mg/dL) 2.6 Magnesium (1.6 - 2.3 mg/dL) 1.9 Total Bilirubin (0.2 - 1.3 mg/dL) 1.6 H Direct Bilirubin (< 0.4 mg/dL) 1.0 H GGT (15 - 73 U/L) 176 H AST (17 - 59 U/L) 28 ALT (21 - 72 U/L) 38 Alkaline Phosphatase (< 127 U/L) 298 H Troponin I (<0.11 ng/ml) 0.04 < 0.01 [id number] Pept (<125 pg/mL) 187 H Total Protein (6.3 - 8.2 g/dL) 6.9 Albumin (3.5 - 5.0 g/dL) 4.0 Amylase (30 - 110 U/L) 31 Lipase (23 - 300 U/L) 99 Coagulation PT (9.4 - 12.5 SEC) 14.4 H INR (0.90 - 1.17) 1.38 H APTT (25 - 37 SEC) 56 H 36 D-Dimer High Sensitivty (0 - 243 ng/ml) 07939 H Hematology CBC w Diff MAN DIFF ORDERED WBC (4.8 - 10.8 /CUMM) 18.3 H RBC (4.70 - 6.10 /CUMM) 4.97 Hgb (14.0 - 18.0 G/DL) 16.9 Hct (42 - 52 %) 50.1 MCV (80.0 - 94.0 FL) 100.9 H MCH (27.0 - 31.0 PG) 33.9 H MCHC (33.0 - 37.0 G/DL) 33.6 RDW (11.5 - 14.5 %) 13.0 Plt Count (130 - 400 /CUMM) 167 MPV (7.4 - 10.4 FL) 9.1 Gran % (42.2 - 75.2 %) 82.9 H Lymphocytes % (20.5 - 51.1 %) 9.2 L Monocytes % (1.7 - 9.3 %) 7.0 Eosinophils % (0 - 5 %) 0.8 Basophils % (0.0 - 2.0 %) 0.1 Absolute Granulocytes (1.4 - 6.5 /CUMM) 15.2 H Absolute Lymphocytes (1.2 - 3.4 /CUMM) 1.7 Absolute Monocytes (0.10 - 0.60 /CUMM) 1.3 H Absolute Eosinophils (0.0 - 0.7 /CUMM) 0.1 Absolute Basophils (0.0 - 0.2 /CUMM) 0 Platelet Estimate (ADEQUATE) ADEQUATE Normochromic RBCs VERIFIED Macrocytic Cells 1+ Imaging/Other Studies: Doppler ultrasound-right DVT, left superficial thrombosis [id number] pulmonary emboli, liver metastases Assessment/Plan Assessment: 1. DVT/pulmonary emboli-this is in the setting of advanced malignancy leading to his hyper- coagulable state Recommend IV heparin Conversion to a newer oral anticoagulant. Lovenox may find a theoretic advantage to oral anticoagulation. This should be balanced against the discomfort and long-term ability to receive subcutaneous medication. Please ask vascular surgery to reconsider an IVC filter placement 2. Stage IV cancer-given all the findings, she likely has metastatic (stage IV) pancreas cancer. Further recommendations regarding systemic therapy will be made to the patient as an outpatient. I discussed all this with the patient Recommendations: .. Consult Acknowledgment - Thank you for your consult request.
[2017-03-28 08:00] VITALS: BP 130/80
--- NOTE | 2017-03-28 08:36 | Cons- CRCU ---
[facility]ICKSON[facility] 0836: General Information and HPI History of Present Illness: Mr. Garcia is a 62-year-old male with a past medical history significant for nicotine dependence, suspected pancreatic and liver cancer who presents to the ED with bilateral lower extremity pain and dyspnea for last 4 days. He reports he noticed worsening SOB with going up and down the stairs. He is currently not working and has had a decrease in activity. He has a poor appetite and noticed about a 20 pound weight loss since last summer. Patient reports a few weeks ago he noticed his skin was jaundiced. He visited Dr. Britton Gibbs who performed an ERCP with stent placement in his CBD. His jaundice subsequently resolved. He had a follow up CT abd/pelvis that was suspicious for pancreatic cancer. He recently established care with Dr. Hawley and a pancreatic biopsy was taken but has not received the results. Patient reports he had a colonoscopy last week with a polypectomy but yet to receive the results. He is currently not on chemotherapy or radiation. He also reports he stopped taking his metformin for 2 days in preparation for any further medical intervention. He denies trauma, CP, palpitations, fever, chills, lower extremity swelling, nausea, vomiting, urinary or bowel symptoms Allergies/Medications Allergies: Coded Allergies: No Known Allergies (03/27/17) Home Med List: Aspirin (Ecotrin*) 81 MG TABLET.DR 1 TAB PO DAILY HEART/BLOOD (Reported) Cholecalciferol (Vitamin D3) (Vitamin D) 1,000 UNIT TABLET 1 TAB PO DAILY SUPPLEMENT (Reported) Metformin HCl (Metformin HCl ER) 500 MG TAB.ER.24H 1 TAB PO DAILY DM ( Reported) Multiple Vitamin (Multivitamins) 1 EACH TABLET 1 TAB PO DAILY SUPPLEMENT ( Reported) [place]-3 Fatty Acids/Fish Oil (Fish Oil 1,000 MG Softgel) (Unknown Strength) CAPSULE (Unknown Dose) PO DAILY SUPPLEMENT (Reported) Zolpidem Tartrate 5 MG TABLET 1 TAB PO QHS SLEEP (Reported) Current Medications: Current Medications Sig/Elijah Start time Last Medication Dose Route Stop Time Status Admin Acetaminophen 650 MG Q8P PRN 03/27 2115 AC PO Aspirin Buffered 81 MG DAILY 03/28 1000 AC 03/28 PO 1020 Cholecalciferol 1,000 IU DAILY 03/28 1000 AC 03/28 PO 1020 Fish Oil 1,050 MG DAILY 03/28 1000 AC 03/28 PO 1020 Heparin Sodium 5,000 UNIT .STK-MED ONE 03/28 0200 DC (Porcine) IV 03/28 0201 Heparin Sodium 3,072 UNIT BOLUS ONE 03/28 0037 DC 03/28 (Porcine) IV 03/28 0038 0100 Heparin Sodium 0 .STK-MED ONE 03/27 1750 DC (Porcine) .ROUTE Heparin Sodium 5,000 UNIT ONCE ONE 03/27 1730 DC 03/27 (Porcine) IV 03/27 1731 1753 Heparin Sodium 25,000 UNIT Q24H / 1700 AC 03/27 (Porcine) IV 1753 Sodium Chloride 500 ML Insulin Aspart 0 TIDAC 03/28 0800 AC SC Lidocaine 1 PAT Q24H 03/27 2115 AC 03/27 EXT 2209 Morphine Sulfate 2 MG Q6P PRN 03/27 2130 AC 03/28 IV 0046 Morphine Sulfate 0 .STK-MED ONE 03/27 1943 DC .ROUTE Morphine Sulfate 2 MG ONCE ONE 03/27 1930 DC 03/27 IV 03/27 1931 1958 Morphine Sulfate 0 .STK-MED ONE 03/27 1520 DC .ROUTE Morphine Sulfate 2 MG ONCE ONE 03/27 1500 CAN IM 03/27 1501 Morphine Sulfate 2 MG ONCE ONE 03/27 1500 DC / IV 03/27 1501 1520 Multivitamins 1 TAB DAILY 03/28 1000 AC 03/28 Therapeutic PO 1020 Omeprazole 40 MG DAILY AC 03/28 0700 AC 03/28 PO 0752 Oxycodone HCl 5 MG Q8P PRN 03/27 2130 AC 03/28 PO 0424 Zolpidem Tartrate 5 MG AT BEDTIME NEED.. 03/27 2200 AC PO Review of Systems Review of Systems Constitutional: Reports: weakness. EENTM: Reports: no symptoms. Cardiovascular: Denies: chest pain, peripheral edema. Respiratory: Denies: short of breath. GI: Reports: no symptoms. Musculoskeletal: Reports: no symptoms. Skin: Reports: no symptoms. Neurological/Psychological: Reports: no symptoms. Past History Travel History Traveled to [place] past 21 day No Medical History Blood Transfusion Hx: No Neurological: NONE EENT: NONE Cardiovascular: NONE Respiratory: NONE Gastrointestinal: PANCREATIC CANCER Hepatic: NONE Renal: NONE Musculoskeletal: NONE Psychiatric: NONE Endocrine: takes metformin 2/2 panc ca glucose control Cancer(s): pancreatic cancer (liver mets) Surgical History Surgical History: cbd stent Family History Relations & Conditions If Any: MOTHER (kidney cancer). Psychosocial History Where Do You Live? Home Services at Home: None Smoking Status: Current Everyday Smoker (1 ppd x25yrs) ETOH Use: occasional use (2x/week) Illicit Drug Use: denies illicit drug use Functional Ability ADLs Independent: dressing, eating, toileting, bathing. Ambulation: independent IADLs Independent: shopping, housework, finances, food prep, telephone, transportation , medication admin. Exam & Diagnostic Data Last 24 Hrs of Vital Signs/I&O Vital Signs Date Time Temp Pulse Resp B/P B/P Pulse O2 O2 Flow FiO2 Mean Ox Delivery Rate 03/28 1130 Room Air 03/28 0800 97.6 116 20 130/80 97 Room Air 03/28 0800 97 Room Air 03/28 0400 99 Room Air 03/28 0000 98 Room Air 03/28 0000 98.0 126 25 152/98 97 Room Air 03/27 2333 99.2 126 20 133/86 96 Room Air 03/27 2213 98.3 120 22 148/90 97 Room Air 03/27 2000 83 20 134/69 97 Room Air 03/27 1929 120 24 98 03/27 1645 98.4 88 22 122/78 98 03/27 1508 Room Air 03/27 1423 98.2 141 20 121/84 95 Room Air Room Air Intake & Output 03/28 1600 03/28 0800 03/28 0000 Intake Total 1058 Output Total 550 Balance 508 Intake, IV 258 Intake, Oral 800 Number 0 Bowel Movements Output, Urine 550 Patient 169 lb Weight Weight Bed scale Measurement Method Physical Exam General Appearance: well developed/nourished, no apparent distress, alert, awake , comfortable Head: atraumatic, normal appearance Eyes: Bilateral: normal appearance. Respiratory: normal breath sounds, chest non-tender, lungs clear Cardiovascular: regular rate/rhythm Gastrointestinal: soft, non-tender Extremities: no edema Neurologic/Psych: awake, alert, oriented x 3 Cranial Nerves: normal hearing, normal speech Skin: intact Last 48 Hrs of Labs/Art: Laboratory Tests 03/28/17 0933: Troponin I 0.02 03/28/17 0630: Triglycerides Cancelled, Cholesterol Cancelled, LDL Cholesterol, Calc Cancelled, HDL Cholesterol Cancelled, Cholesterol/HDL Ratio Cancelled 03/28/17 0630: Anion Gap 10, Estimated GFR > 60, Glucose 127 H, Calcium 8.6, Phosphorus 3.8, Magnesium 2.0, Total Bilirubin 1.0, AST 23, ALT 36, Albumin 3.0 L, Triglycerides 123, Cholesterol 134, LDL Cholesterol, Calc 68, HDL Cholesterol 42 , Cholesterol/HDL Ratio 3, APTT 85 H, CBC w Diff NO MAN DIFF REQ, RBC 4.24 L, MCV 100.8 H, MCH 33.0 H, MCHC 32.8 L, RDW 12.9, MPV 8.9, Gran % 62.7, Lymphocytes % 25.0, Monocytes % 8.7, Eosinophils % 3.1, Basophils % 0.5, Absolute Granulocytes 7.7 H, Absolute Lymphocytes 3.1, Absolute Monocytes 1.1 H, Absolute Eosinophils 0.4, Absolute Basophils 0.1 03/28/17 0214: Troponin I 0.03 03/27/17 2354: APTT 56 H 03/27/17 1840: Troponin I 0.04 03/27/17 1505: Anion Gap 16, Estimated GFR > 60, BUN/Creatinine Ratio 12.9, Glucose 179 H, Hemoglobin A1c 6.2 H, Calcium 9.7, Phosphorus 2.6, Magnesium 1.9, Total Bilirubin 1.6 H, Direct Bilirubin 1.0 H, GGT 176 H, AST 28, ALT 38, Alkaline Phosphatase 298 H, Troponin I < 0.01, Lro-D-Paalisdaygt Pept 187 H, Total Protein 6.9, Albumin 4.0, Amylase 31, Lipase 99, PT 14.4 H, INR 1.38 H, APTT 36, D-Dimer High Sensitivty 40479 H, CBC w Diff MAN DIFF ORDERED, RBC 4.97, MCV 100.9 H, MCH 33.9 H, MCHC 33.6, RDW 13.0, MPV 9.1, Gran % 82.9 H, Lymphocytes % 9.2 L, Monocytes % 7.0, Eosinophils % 0.8, Basophils % 0.1, Absolute Granulocytes 15.2 H, Absolute Lymphocytes 1.7, Absolute Monocytes 1.3 H, Absolute Eosinophils 0.1, Absolute Basophils 0, Platelet Estimate ADEQUATE, Normochromic RBCs VERIFIED, Macrocytic Cells 1+ Microbiology 02/02 0240 URINE ROUT: Legionella Antigen - COMP 03/28 239 URINE ROUT: Streptococcus pneumoniae Antigen (M - COMP Assessment/Plan Impression/Plan: Mr. Garcia is a 62-year-old male with a past medical history significant for nicotine dependence, suspected pancreatic and liver cancer who presents to the ED with bilateral lower extremity pain and dyspnea for last 4 days. Assessment and Plan: Bilateral Pulmonary Emboli: CAT scan on admission showed evidence of bilateral pulmonary emboli. Doppler U/S showed DVT in right lower extremity and superficial clot in left lower extremity. He was started on IV heparin. * Will discontinue IV heparin at this time. * Start the patient on SC Lovenox daily. Patient opts to try SC treatment at this time but may change towards oral anticoagulation. * Was evaluated by vascular surgery. He can have an IVC filter placed as an outpatient. * Stable to be downgraded to telemetry. Pancreatic Cancer: * Treatment with Dr Hawley as outpatient. Diet: Heart Healthy DVT Prophylaxis: SC Lovenox Code: Full Code Consult Acknowledgment - Thank you for your consult request. Bob ERICKSON,Ollie Mayo 03/28/17 0954: General Information and HPI Consulting Request Date of Consult: 03/28/17 Requested By: Dr. Julian Reason for Consult: Bilateral pulmonary emboli Source of Information: patient, old records Exam Limitations: no limitations Assessment/Plan Other Findings/Comments: The patient is a 62-year-old male who presented with right leg pain. He was found to have a significant DVT. The patient's recent course has been characterized by the finding of a pancreatic mass and liver abnormalities. He presented with jaundice requiring stent placement. Brushings of his common bile duct stricture revealed carcinoma in situ. Subsequent liver biopsy confirmed adenocarcinoma likely of hepatobiliary/pancreatic origin. He has been following with Dr. Hawley. Further evaluation revealed extensive pulmonary emboli, without evidence of RV strain. The patient has been hemodynamically stable and on room air. He is awake, alert and appears comfortable. He remains on a Heparin drip which was started in the ED. Impression: 1. Right lower extremity DVT. 2. Bilateral pulmonary emboli without RV strain or hemodynamic instability. 3. Mestatic pancreatic cancer - not yet on therapy. Plan: * Continue anticoagulation as per oncology. * Follow up oncology recommendations. * Vascular surgery consult for consideration of IVC filter placement. * Continue to monitor BP and oxygen saturations closely. * Continue all home medications. * Continue all supportive care. Consult Acknowledgment - Thank you for your consult request.
--- NOTE | 2017-03-28 09:48 | Cons- Vascular Surgery ---
General Information and HPI Consulting Request Date of Consult: 03/28/17 Requested By: Ollie Rojas MD History of Present Illness: 62-year-old man with stage IV pancreatic cancer with metastasis to liver was found to have right lower extremity DVT and PE. He is currently on room air. He is being treated with heparin. From oncological standpoint, the plan is to undergo chemotherapy. Currently, his platelet count is 120. I spoke with Dr. Hawley from oncology who suspects dropping platelet count during chemotherapy. As a result, he would not be able to be on anticoagulation due to risk of bleeding. I was asked to see the patient and evaluate for IVC filter placement. Allergies/Medications Allergies: Coded Allergies: No Known Allergies (03/27/17) Home Med List: Aspirin (Ecotrin*) 81 MG TABLET.DR 1 TAB PO DAILY HEART/BLOOD (Reported) Cholecalciferol (Vitamin D3) (Vitamin D) 1,000 UNIT TABLET 1 TAB PO DAILY SUPPLEMENT (Reported) Metformin HCl (Metformin HCl ER) 500 MG TAB.ER.24H 1 TAB PO DAILY DM ( Reported) Multiple Vitamin (Multivitamins) 1 EACH TABLET 1 TAB PO DAILY SUPPLEMENT ( Reported) [place]-3 Fatty Acids/Fish Oil (Fish Oil 1,000 MG Softgel) (Unknown Strength) CAPSULE (Unknown Dose) PO DAILY SUPPLEMENT (Reported) Zolpidem Tartrate 5 MG TABLET 1 TAB PO QHS SLEEP (Reported) Past History Medical History Blood Transfusion Hx: No Neurological: NONE EENT: NONE Cardiovascular: NONE Respiratory: NONE Gastrointestinal: PANCREATIC CANCER Hepatic: NONE Renal: NONE Musculoskeletal: NONE Psychiatric: NONE Endocrine: takes metformin 2/2 panc ca glucose control Cancer(s): pancreatic cancer (liver mets) Surgical History Pertinent Surgical History: cbd stent Family History Relations & Conditions If Any: MOTHER (kidney cancer). Psychosocial History Where Do You Live? Home Services at Home: None Smoking Status: Current Everyday Smoker (1 ppd x25yrs) ETOH Use: occasional use (2x/week) Illicit Drug Use: denies illicit drug use Functional Ability ADLs Independent: dressing, eating, toileting, bathing. Ambulation: independent IADLs Independent: shopping, housework, finances, food prep, telephone, transportation , medication admin. Review of Systems Review of Systems: Patient denies headache, dizziness, cough, palpitation, diarrhea or constipation Exam & Diagnostic Data Vital Signs and I&O Vital Signs Date Time Temp Pulse Resp B/P B/P Pulse O2 O2 Flow FiO2 Mean Ox Delivery Rate 03/28 0400 99 Room Air 03/28 0000 98 Room Air 03/28 0000 98.0 126 25 152/98 97 Room Air 03/27 2333 99.2 126 20 133/86 96 Room Air 03/27 2213 98.3 120 22 148/90 97 Room Air 03/27 2000 83 20 134/69 97 Room Air 03/27 1929 120 24 98 03/27 1645 98.4 88 22 122/78 98 03/27 1508 Room Air 03/27 1423 98.2 141 20 121/84 95 Room Air Room Air Intake & Output 03/28 1600 03/28 0800 03/28 0000 03/27 1600 03/27 0800 03/27 0000 Intake Total 1058 Output Total 550 Balance 508 Intake, IV 258 Intake, Oral 800 Number 0 Bowel Movements Output, Urine 550 Patient 169 lb 178 lb Weight Weight Bed scale Reported by Patient Measurement Method Physical Exam: Patient is alert and oriented 3. Lungs: Clear to auscultation bilaterally Cardiovascular: Regular rate and rhythm Abdomen: Soft, nondistended, nontender Extremities: Well-perfused Assessment/Plan Assessment/Plan 62-year-old man with stage IV pancreatic cancer with right lower extremity DVT and PE currently on room air. The patient to be discharged on anticoagulation. Given his future course of chemotherapy which may cause drop in platelet count and need to stop tigroid fashion, I think is reasonable to place an IVC filter in an elective basis. Apparently, the patient will be discharged soon. We will arrange an IVC filter placement as an outpatient. I give for asking me to be involved in the care of this patient. Consult Acknowledgment - Thank you for your consult request. Attending MD Review Statement Attending Statement Attending MD Statement: examined this patient, discuss w/resident/PA/[employer]
--- NOTE | 2017-03-28 12:05 | ECHOCARDIOGRAM REPORT ---
VIRAJ DOMINGUEZ Age: 62 : 1955 Gender: M Exam Date: 03/28/2017 09:23 Exam Location: [facility] Ht (in): 70 Wt (lb): 169 BSA: 1.95 BP: 135 / 98 Ordering Physician: Sincere Vega MD Referring Physician: Sincere Vega MD Technologist: Kamron Dasilva [facility] Room Number: 108-1 Indications: ACUTE PULMONARY EMBOLISM Rhythm: Technical Quality: FINDINGS Left Ventricle Left ventricular cavity size normal. Left ventricular wall thickness at upper limits of normal. No obvious regional wall motion abnormalities. Left ventricular ejection fraction is estimated at > 55 %. Right Ventricle Normal right ventricular size and function. Right Atrium Normal right atrial size. Left Atrium Normal left atrial size. Mitral Valve Structurally normal mitral valve. Trace mitral regurgitation. Aortic Valve No aortic stenosis. Trileaflet aortic valve. Tricuspid Valve Structurally normal tricuspid valve. Trace tricuspid regurgitation. Unable to estimate the right ventricular systolic pressure. Pulmonic Valve Pulmonic valve not well visualized, grossly normal. Pericardium No pericardial effusion. Great Vessels Normal size aortic root and proximal ascending aorta. CONCLUSIONS Left ventricular cavity size normal. Left ventricular wall thickness at upper limits of normal. No obvious regional wall motion abnormalities. Left ventricular ejection fraction is estimated at > 55 %. Normal right ventricular size and function. Unable to estimate the right ventricular systolic pressure. No pericardial effusion. Bennett Mendoza M.D. (Electronically Signed) Final Date: 28 March 2017 12:04 MEASUREMENTS (Male / Female) Normal Values 2D ECHO LV Diastolic Diameter PLAX 3.8 cm 4.2 - 5.9 / 3.9 - 5.3 cm LV Systolic Diameter PLAX 2.6 cm 2.1 - 4.0 cm LV Fractional Shortening PLAX 31.6 % 25 - 46 % LV Ejection Fraction 2D Teich 60.3 % IVS Diastolic Thickness 1.2 cm LVPW Diastolic Thickness 1.1 cm LV Relative Wall Thickness 0.6 RV Internal Dim ED PLAX 3.1 cm 1.9 - 3.8 cm LVOT Diameter 2.1 cm Aortic Root Diameter 2.9 cm LA Systolic Diameter LX 3.8 cm 3.0 - 4.0 / 2.7 - 3.8 cm LA Volume 45.0 cm 18 - 58 / 22 - 52 cm Ascending Aorta Diameter 3.7 cm DOPPLER AV Peak Velocity 93.7 cm/s AV Peak Gradient 3.5 mmHg AV Mean Velocity 65.2 cm/s AV Mean Gradient 2.0 mmHg AV Velocity Time Integral 13.2 cm LVOT Peak Velocity 75.9 cm/s LVOT Peak Gradient 2.3 mmHg LVOT Mean Velocity 44.2 cm/s LVOT Mean Gradient 1.0 mmHg LVOT Velocity Time Integral 11.9 cm LVOT Stroke Volume 41.2 cm AV Area Cont Eq vti 3.1 cm AV Area Cont Eq pk 2.8 cm MV Peak Velocity 128.0 cm/s MV Peak Gradient 6.6 mmHg MV Mean Velocity 70.4 cm/s MV Mean Gradient 3.0 mmHg Mitral E Point Velocity 88.4 cm/s MV PHT Velocity 130.0 cm/s MV Deceleration [place] 1169.0 cm/s MV Pressure Half Time 33.4 ms MV Area PHT 6.6 cm MV Deceleration Time 144.0 ms PV Peak Velocity 73.1 cm/s PV Peak Gradient 2.1 mmHg PV Mean Velocity 48.9 cm/s PV Mean Gradient 1.0 mmHg PV Velocity Time Integral 12.0 cm LV E' Lateral Velocity 21.0 cm/s Mitral E to LV E' Lateral Ratio 4.2 LV E' Septal Velocity 18.1 cm/s Mitral E to LV E' Septal Ratio 4.9
[2017-03-28 16:00] VITALS: BP 132/80
[2017-03-28 21:16] LABS: PTT 109 SEC (25-37)
[2017-03-28 22:43] VITALS: BP 126/80
[2017-03-29 04:37] LABS: ABSOLUTE BASOPHIL COUNT 0.1 /CUMM (0.0-0.2); ABSOLUTE EOSINOPHIL COUNT 0.3 /CUMM (0.0-0.7); ABSOLUTE GRANULOCYTE CT 6.6 /CUMM (1.4-6.5); ABSOLUTE LYMPH COUNT 2.9 /CUMM (1.2-3.4); ABSOLUTE MONOCYTE COUNT 0.9 /CUMM (0.10-0.60); BASOPHIL % 0.5 % (0.0-2.0); EOSINOPHIL % 2.9 % (0-5); GRANULOCYTE % 61.2 % (42.2-75.2); HEMATOCRIT 41.6 % (42-52); MEAN CORPUSCULAR HGB 33.1 PG (27.0-31.0); MEAN CORPUSCULAR HGB CONC 32.6 G/DL (33.0-37.0); MEAN CORPUSCULAR VOLUME 101.7 FL (80.0-94.0); PLATELET COUNT 225 /CUMM (130-400); RBC DISTRIBUTION WIDTH 13.1 % (11.5-14.5); RED BLOOD CELL CT 4.09 /CUMM (4.70-6.10); WHITE BLOOD CELL COUNT 10.7 /CUMM (4.8-10.8)
[2017-03-29 04:53] LABS: PTT 55 SEC (25-37)
[2017-03-29 06:00] VITALS: BP 130/72
--- NOTE | 2017-03-29 09:06 | PN- Housestaff ---
Alyssa ERICKSON,Quique 03/29/17 0906: Subjective Follow-up For: DVT, PE Complaints: leg pain Tele-Events Since Last Visit: Sinus rhythm, sinus tachycardia, heart rate ranging from 68-105. Subjective: I followed up and examined the patient today. He is resting comfortably in his bed, does not have any acute distress but is complaining of leg pain, which he says is tolerable. He does not have any breathing difficulty, does not endorse any chest pain, palpitation, fever, chills, dizziness. Review of Systems Constitutional: Reports: see HPI. Objective Last 24 Hrs of Vital Signs/I&O Vital Signs Date Time Temp Pulse Resp B/P B/P Pulse O2 O2 Flow FiO2 Mean Ox Delivery Rate 03/29 1441 97.9 114 20 132/70 95 Room Air 03/29 0800 Room Air 03/29 0600 98.5 74 20 130/72 97 03/28 2243 97.7 75 18 126/80 96 Intake & Output 03/29 1600 03/29 0800 03/29 0000 Intake Total 900 305 450 Output Total Balance 900 305 450 Intake, IV 100 185 100 Intake, Oral 800 120 350 Number 0 Bowel Movements Patient 76.799 kg Weight Physical Exam General Appearance: Alert, Oriented X3, Cooperative, No Acute Distress Other Physical Findings: Skin No Rashes, No Breakdown HEENT Atraumatic, PERRLA, EOMI, Mucous Membr. moist/pink Neck Supple, No JVD Lymphatic Cervical nl Cardiovascular Regular Rate, Normal S1, Normal S2, No Murmurs, Gallops Lungs Normal Air Movement, b/l NO crackles or wheeze heard. Abdomen Normal Bowel Sounds, Soft, No Tenderness Neurological grossly intact Extremities No Clubbing, No Cyanosis, Normal Pulses, mild Tenderness/Swelling b/ l Vascular Normal Pulses, Pulses Symmetrical Current Medications: Current Medications Sig/Elijah Start time Last Medication Dose Route Stop Time Status Admin Acetaminophen 650 MG Q8P PRN 03/275 DCD PO Aspirin Buffered 81 MG DAILY 03/28 1000 DCD 03/29 PO 0847 Cholecalciferol 1,000 IU DAILY 03/28 1000 DCD 03/29 PO 0847 Enoxaparin Sodium 120 MG DAILY 03/28 1314 DCD 03/29 SC 0846 Fish Oil 1,050 MG DAILY 03/28 1000 DCD 03/29 PO 0847 Heparin Sodium 5,000 UNIT .STK-MED ONE 03/29 0538 DC (Porcine) IV 03/29 0539 Heparin Sodium 3,071 UNIT BOLUS ONE 03/29 0530 DC 03/29 (Porcine) IV 03/29 0531 0544 Heparin Sodium 25,000 UNIT Q24H / 1700 DC 03/28 (Porcine) IV 1236 Sodium Chloride 500 ML Insulin Aspart 0 TIDAC 03/28 0800 DCD 03/29 SC 0802 Lidocaine 1 PAT Q24H 03/27 2115 DCD 03/28 EXT 2235 Morphine Sulfate 2 MG Q6P PRN 03/27 2130 DCD 03/29 IV 0844 Multivitamins 1 TAB DAILY 03/28 1000 DCD 03/29 Therapeutic PO 0847 Omeprazole 40 MG DAILY AC 03/28 0700 DCD 03/29 PO 0538 Oxycodone HCl 5 MG Q8P PRN 03/27 2130 DCD 03/29 PO 1235 Zolpidem Tartrate 5 MG AT BEDTIME NEED.. 03/27 2200 DCD 03/28 PO 2235 Last 24 Hrs of Lab/Art Results Last 24 Hrs of Labs/Mics: Laboratory Tests 03/29/17 1130: APTT Cancelled 03/29/17 0335: Anion Gap 9, Estimated GFR > 60, Glucose 133 H, Calcium 8.6, Phosphorus 4.4, Magnesium 1.9, Total Bilirubin 0.8, AST 23, ALT 30, Albumin 2.9 L, APTT 55 H, CBC w Diff NO MAN DIFF REQ, RBC 4.09 L, MCV 101.7 H, MCH 33.1 H, MCHC 32.6 L , RDW 13.1, MPV 9.0, Gran % 61.2, Lymphocytes % 27.2, Monocytes % 8.2, Eosinophils % 2.9, Basophils % 0.5, Absolute Granulocytes 6.6 H, Absolute Lymphocytes 2.9, Absolute Monocytes 0.9 H, Absolute Eosinophils 0.3, Absolute Basophils 0.1 Assessment/Plan Assessment: 62-year-old man with past medical history of type 2 diabetes, hyperlipidemia, and a recent diagnosis of pancreatic adenocarcinoma, presented with bilateral legs swelling/pain, and shortness of breath, was found to have bilateral DVT and pulmonary embolism. He has received IV heparin from the emergency department, and also received therapeutic dose of Lovenox after this morning. Given his condition/ cancer diagnosis, he will require lifelong anticoagulation, which we have started with Eliquis, starting with 10 mg twice a day for 7 days and 5 mg twice a day for rest of his life. Patient has been provided with a coupon for free Eliquis for the first month and a $10 co-pay card for then onwards. He has been prescribed with Percocet for leg pain, and has been discharged. #Diet: Heart healthy #DVT ppx: On SC Lovenox #Code status: Full code Problem List: 1. DVT (deep venous thrombosis) 2. Pulmonary emboli 3. Pancreatic cancer Pain Ratin Pain Location: legs Pain Goal: Pain 4 or less Pain Plan: percocet Tomorrow's Labs & Rationales: - Christa Kaye MD 03/29/17 1335: Attending MD Review Statement Attending Statement Attending MD Statement: examined this patient, discuss w/resident/PA/CASINO CASHIER, agreed w/resident/PA/CASINO CASHIER, reviewed EMR data (avail), discussed with nursing, discussed with case mgmt, amended to note Attending Assessment/Plan: Patient seen and examined. EHR reviewed. Patient was transferred out of the ICU overnight after being admitted there with bilateral pulmonary embolism and lower extremity deep vein thrombosis. Has remained hemodynamically stable over the admission. He has not required oxygen supplementation. He will start on anticoagulation therapy with intravenous heparin. The oncology service is recommending transition to oral anticoagulation agent as this is more preferable for the patient's comfort and compliance. The oncology service is also requested for an IVC filter to be placed. Considering the patient will likely start chemotherapy in the future and this may be complicated by thrombocytopenia that may necessitate discontinuation of his oral anticoagulant therapy, placement of an IVC filter does appear appropriate. I did discuss this plan with the patient in detail and he verbalized understanding. He remains asymptomatic With regards to his pulmonary embolism denies chest pain or shortness of breath. Denies cough. His lungs are clear to auscultation bilaterally. He continues complain of right lower extremities pain and swelling. On examination he has mild swelling of the right lower extremity. There is no area of erythema. The extremity is not cool to touch. He has normal range of motion. Recommendations: Transition patient to Eliquis for long-term anticoagulant therapy. Patient to follow-up with the hematology/oncology service as an outpatient. Patient to follow-up with the vascular surgery service for placement of an IVC filter. Recommend addition of Percocet to his regimen for pain control as needed.
[2017-03-29] MEDS ORDERED: LIDODERM1 EACH EXT (13:05)
[2017-03-29] MEDS ORDERED: ELIQUIS5 M1 PO ×2 (13:05→13:39)
--- NOTE | 2017-03-29 13:13 | Patient Discharge Instructions ---
Discharge Instructions General Discharge Information You were seen/treated for: Pulmonary embolism, deep vein thrombosis. Special Instructions: Please follow-up with your restorative care technician/oncologist, vascular surgeon and your family care provider within 7 days of discharge. Please return to emergency if symptoms worsen. Diet Continue normal diet: Yes Recommended Diet: Diabetic Activity Full Activity/No Limits: No Activity Self Limited: Yes Acute Coronary Syndrome Inclusion Criteria At DC or during hospital stay patient has or had the following: ACS DIAGNOSIS No Discharge Core Measures Meds if any: Prescribed or Continued at Discharge Meds if any: NOT Prescribed or Continued at Discharge Congestive Heart Failure Inclusion Criteria At DC or during hospital stay patient has or had the following: CHF DIAGNOSIS No Discharge Core Measures Meds if any: Prescribed or Continued at Discharge Meds if any: NOT Prescribed or Continued at Discharge Cerebrovascular accident Inclusion Criteria At DC or during hospital stay patient has or had the following: CVA/TIA Diagnosis No Discharge Core Measures Meds if any: Prescribed or Continued at Discharge Meds if any: NOT Prescribed or Continued at Discharge Venous thromboembolism Inclusion Criteria VTE Diagnosis Yes VTE Type Pulmonary Embolism (pe, dvt both) VTE Confirmed by (Test) CT CHEST ANGIOGRAM (and Doppler of legs) Discharge Core Measures - Per Current guidelines, there needs to be overlap - treatment for the first 5 days of Warfarin therapy. - If discharged on Warfarin prior to 5 days of - overlap therapy, the patient will need to be - assessed for post discharge needs including - *Post discharge parental anticoagulation - *Warfarin and/or parental anticoagulation education - *Follow up date to check INR post discharge At least 5 days overlap therapy as Inpatient No Why was Parental Med stopped Other Anticoagulant given (Eliquis given) Meds if any: Prescribed or Continued at Discharge Note: Overlap Therapy is Warfarin and Anticoagulant Meds if any: NOT Prescribed or Continued at Discharge No Warfarin d/t Prescribed other Anticoag (Eliquis prescribed)
[2017-03-29] MEDS ORDERED: PERCOCET 5-3251 EACH PO ×2 (13:41→14:05)
[2017-03-29 14:41] VITALS: BP 132/70
--- NOTE | 2017-03-29 21:30 | Discharge Summary ---
Visit Information Visit Dates Admission Date: 03/27/17 Discharge Date: 03/29/17 Hospital Course Course Attending Physician: Christa Kaye MD Primary Care Physician: Kathy Silva MD Allergies: Coded Allergies: No Known Allergies (03/27/17) Disposition Summary Disposition Principal Diagnosis: Bilateral DVT, pulmonary embolism Additional Diagnosis: Adenocarcinoma of the pancreas, type 2 diabetes, hyperlipidemia Discharge Disposition: home or self care Discharge Instructions General Discharge Information Code Status: Full Code Patient's Diet: Diabetic diet Patient's Activity: As tolerated Medications at Discharge Discharge Medications: Continue taking these medications: Metformin HCl (Metformin HCl ER) 500 MG TAB.ER.24H 1 Tablet ORAL DAILY Qty = 90 Comments: DID NOT RECEIVE WHILE IN HOSPITAL Zolpidem Tartrate (Zolpidem Tartrate) 5 MG TABLET 1 Tablet ORAL TAKE AT BEDTIME Qty = 30 Comments: Last Taken:03/28/17 Time: 10:30 PM Multiple Vitamin (Multivitamins) 1 EACH TABLET 1 Tablet ORAL DAILY Comments: Last Taken:03/29/17 Time: 8:45 AM [place]-3 Fatty Acids/Fish Oil (Fish Oil 1,000 MG Softgel) (Unknown Strength) CAPSULE Unknown Dose ORAL DAILY Comments: Last Taken:03/29/17 Time: 8:45 AM Cholecalciferol (Vitamin D3) (Vitamin D) 1,000 UNIT TABLET 1 Tablet ORAL DAILY Comments: Last Taken:03/29/17 Time: 8:45 AM Aspirin (Ecotrin*) 81 MG TABLET.DR 1 Tablet ORAL DAILY Comments: Last Taken:03/29/17 Time: 8:45 AM Start taking the following new medications: Oxycodone HCl/Acetaminophen (Percocet 5-325 MG Tablet) 5 MG-325 MG TABLET 1 Tablet ORAL EVERY 8 HOURS as needed for PAIN Qty = 10 No Refills Instructions: . Apixaban (Eliquis) 5 MG TABLET 0 ORAL SEE INSTRUCTIONS Qty = 88 Refills = 1 Instructions: TAKE TWO TAB TWICE DAILY FOR SEVEN DAYS (03/29/17-04/04/17). THEN TAKE ONE TAB TWICE DAILY FROM 04/05/17 ONWARDS. TO CONTINUE. Comments: TAKE TWO TAB TWICE DAILY FOR SEVEN DAYS (03/29/17-04/04/17). THEN TAKE ONE TAB TWICE DAILY FROM 04/05/17 ONWARDS. TO CONTINUE.
== END 2017-03-29 15:30 | DRG 197 ==
LOC: ERH 14:16 → ERHI 19:31 → CRI 19:31 → ENRESERV 19:47 → CANRESERV 19:47 → EDBEDREQ 21:21 → ERHI 21:27 → ENRESERV 23:10 → CRI 23:42 → 1NO 03-28 19:09 → ENPENDDIS 03-29 13:44 → ENTRNSPT 03-29 14:59 → 1NO 03-29 15:30 → CMPTRNSPT 03-29 15:43
PROVIDERS: Internal Medicine; Internal Medicine Endocrinology, Diabetes & Metabolism; Internal Medicine Pulmonary Disease; Student in an Organized Health Care Education/Training Program
DX: I82.401 Acute embolism and thrombosis of unspecified deep veins of right lower extremity (principal); I26.99 Other pulmonary embolism without acute cor pulmonale; F17.210 Nicotine dependence, cigarettes, uncomplicated; C25.9 Malignant neoplasm of pancreas, unspecified; C78.7 Secondary malignant neoplasm of liver and intrahepatic bile duct; I82.402 Acute embolism and thrombosis of unspecified deep veins of left lower extremity; Z96.0 Presence of urogenital implants; Z79.82 Long term (current) use of aspirin; E78.5 Hyperlipidemia, unspecified; E11.9 Type 2 diabetes mellitus without complications; Z80.51 Family history of malignant neoplasm of kidney
CPT/HCPCS: 1NSP; CCU; 36415; 82436; 87449; 87450; 93005; 93010; 93306; 93970; 96374; 96375; 99291; J1644; J1650

== ENCOUNTER → 2017-04-07 | Day surgery (SDC) | payer OTHER ==
[~2017-04-07] VITALS: Ht 177.8 cm; Wt 79.4 kg
[~2017-04-07] MED LIST: ASPIRIN EC81 M1 PO; ELIQUIS5 M1 PO; FISH OIL 1,0001 EAC1 PO; LIDODERM1 EACH EXT; LOVENOX80 MG/0.1 SC; METFORMIN HCL500 M4 PO; METOPROLOL TART25 M1 PO; MULTIVITAMINS1 EAC9 PO; OXYCODONE HCL5 M1 PO; PERCOCET 5-3251 EACH PO; VITAMIN B-121000 MC3 PO; VITAMIN D1000 UNIT PO; ZOLPIDEM TARTRAT5 M1 PO
--- NOTE | 2017-04-07 15:19 | RADIOLOGY REPORT ---
EXAMINATION: XR PORTABLE CHEST CLINICAL INFORMATION: Status post Port-A-Cath placement. COMPARISON: Chest CTA of 03/27/2017. Chest x-ray of 09/30/2013. TECHNIQUE: Portable frontal view of the chest was obtained. FINDINGS: A right-sided Port-A-Cath is in place with the tip projecting over the expected location of the superior cavoatrial junction. No evidence of pneumothorax. The lungs are mildly hypoexpanded. Likely minimal right basilar subsegmental atelectasis. The lungs are otherwise clear. Stable mild elevation of the right hemidiaphragm. No pleural effusions. Pulmonary vascularity is normal. IMPRESSION: Right-sided Port-A-Cath is in place with the tip projecting over the expected location of the superior cavoatrial junction. No pneumothorax.
--- NOTE | 2017-04-09 12:15 | RADIOLOGY REPORT ---
EXAMINATION:\H\ \N\XR CHEST CLINICAL INFORMATION: Right Port-A-Cath. COMPARISON: X-ray portable chest 04/07/2017. X-ray chest, (single view) 04/07/2017. X-ray of chest 09/30/2013. TECHNIQUE: Intraoperative fluoroscopic guidance was provided to Dr. Cordova who performed right chest port placement. Fluoroscopy time was 0.2 minutes. Total number of images: 2. FINDINGS: 2 fluoroscopic spot views demonstrate a needle and wire projecting over the right chest. The final image demonstrates a right subclavian port. IMPRESSION: Intraoperative fluoroscopic guidance provided for right subclavian port placement. Refer to operative notes for details.
--- NOTE | 2017-04-10 10:51 | Operative Report ---
Operative/Inv Procedure Report Surgery Date: 04/07/17 Name of Procedure: Fluoroscopic guided insertion of tunneled Port-A-Cath via right subclavian vein Pre-Operative Diagnosis: pancreatic cancer Post-Operative Diagnosis: same Estimated Blood Loss: scant Surgeon/Snow Maker: Art ERICKSON,Denny Winston Anesthesia: general endotracheal tube Operative/Procedure Note Note: With the patient supine on the OR table, right arm tucked, head not turned, after induction of MAC sedation, the patient's right subclavian area, including the shoulder neck and contralateral chest, were prepped and draped in the usual sterile fashion. After injecting local anesthetic in the right infraclavicular area, skin, subcutaneous to the clavicle, and inferiorly where the pocket will be, the patient was repositioned to Trendelenburg. Putting your right index finger on the sternal notch and thumb pressing down lateral to the curve of the clavicle, I made a puncture through the skin with the 15 blade scalpel next to thumb. Then along that line towards the tip of your finger, advance a large- bore needle, bevel towards the feet, on a slip tip 10 mL syringe barrel flat against the deltoid, advancing to bone and then "walking" it down just under the clavicle keeping the needle flat as possible, while maintaining vacuum with the plunger, accessing the subclavian venous blood, then replacing the syringe with a wire, sliding in with minimum resistance, confirming the position with the C- arm fluoroscope, making sure the wire is traveling down along the cava towards the right side of the heart and not up or across, and no ectopy. Next I secured the wire to the drape, measured (approximately 23 cm), cut and attached the catheter to the port. Approximately 3-4 cm inferior to the stick site a 2-1/2 cm long skin incision was made with a 15 blade scalpel along Langers lines. It was deepened with cautery and a space was developed inferiorly under the subcutaneous layer. The Port-A-Cath was laid in there and secured in [address] with 2-0 Prolene through the holes in the port, the sutures were kept loose on snaps at this point. Next the catheter was tunneled up subcutaneously with a snap and brought out through the stick site next to the wire. Then the dilator only, was passed over the wire until you could feel it slide under the clavicle, then removed, then re-advanced this time with the peel-away sheath over it, while advancing simultaneously pull the dilator out and advance the sheath, eventually pulling out the dilator and wire completely. Then the catheter was put into the sheath as far as it'll go then while holding that knuckle down with DeBakey's, gently peel-away the sheath with your orthotics prosthetics assistant. Now the correct position of the catheter was confirmed with the fluoroscope, using a Bonds needle and heparinized saline solution, the catheter was first aspirated then flushed with approximately 3 mL's, with minimal resistance. The patient was repositioned to neutral, after tying down the 2 Prolenes, the larger incision was closed in layers, 3-0 Vicryl deep and 4-0 subcuticular Monocryl for the skin, and one subcuticular Monocryl for the stick site. Both areas were covered with Mastisol Steri-Strips Telfa and Tegaderm. Chest x-ray was ordered to be done in the recovery room. Lap and sponge counts were correct. Wound expectancy was clean, IV fluids crystalloid, complications none, patient tolerated the procedure well was awakened and returned to the recovery room in satisfactory condition.
== END ==
LOC: STS 03:39
DX: C25.9 Malignant neoplasm of pancreas, unspecified (principal); Z86.718 Personal history of other venous thrombosis and embolism; Z79.01 Long term (current) use of anticoagulants; E11.9 Type 2 diabetes mellitus without complications; Z79.84 Long term (current) use of oral hypoglycemic drugs; I10 Essential (primary) hypertension; F17.200 Nicotine dependence, unspecified, uncomplicated
CPT/HCPCS: 71045; 93005; 93010; C1751; J0690; J1644; J2250

== ENCOUNTER 2017-04-10 15:12 | Observation (INO) | payer OTHER ==
[~2017-04-10] VITALS: Ht 177.8 cm; Wt 78.9 kg
[~2017-04-10 15:12] MED LIST changes: -LOVENOX80 MG/0.1 SC; -METOPROLOL TART25 M1 PO; -OXYCODONE HCL5 M1 PO; -VITAMIN B-121000 MC3 PO
[2017-04-10] MEDS ORDERED: VITAMIN B-121000 MC3 PO (15:46)
[2017-04-10] MEDS ORDERED: ELIQUIS5 M1 PO (15:46)
[2017-04-10] MEDS ORDERED: OXYCODONE HCL5 M1 PO (15:47)
[2017-04-10 15:51] LABS: ABSOLUTE BASOPHIL COUNT 0.1 /CUMM (0.0-0.2); ABSOLUTE EOSINOPHIL COUNT 0.3 /CUMM (0.0-0.7); ABSOLUTE GRANULOCYTE CT 11.7 /CUMM (1.4-6.5); ABSOLUTE LYMPH COUNT 2.7 /CUMM (1.2-3.4); BASOPHIL % 0.4 % (0.0-2.0); EOSINOPHIL % 2.2 % (0-5); GRANULOCYTE % 73.7 % (42.2-75.2); HEMATOCRIT 43.5 % (42-52); MEAN CORPUSCULAR HGB CONC 33.6 G/DL (33.0-37.0); MEAN PLATELET VOLUME 9.2 FL (7.4-10.4); PLATELET COUNT 170 /CUMM (130-400); RBC DISTRIBUTION WIDTH 13.3 % (11.5-14.5); WHITE BLOOD CELL COUNT 15.8 /CUMM (4.8-10.8)
--- NOTE | 2017-04-10 16:11 | ED GENERAL ADULT ---
History of Present Illness General Chief Complaint: Lower Extremity Problems Stated Complaint: RT LEG IS SWOLLEN, CLOTS IN RT LEG Source: patient, old records Exam Limitations: no limitations Vital Signs & Intake/Output Vital Signs & Intake/Output Vital Signs Date Time Temp Pulse Resp B/P B/P Pulse O2 O2 Flow FiO2 Mean Ox Delivery Rate 04/12 0907 97.9 110 18 124/82 04/12 0600 97.9 110 18 124/82 98 04/12 0047 130 130/94 04/12 0000 Room Air Room Air 04/11 2200 98.3 133 18 130/100 97 Room Air ED Intake and Output 04/12 0000 04/11 1200 Intake Total 100 Output Total Balance 100 Intake, Oral 100 Patient 174 lb Weight Weight Standing Scale Measurement Method Allergies Coded Allergies: No Known Allergies (03/27/17) Triage Note: 62 YO MALE TO TRIAGE C/O R LOWER EXTREMITY SWELLING AND PAIN THAT STARTED THIS AM. PT HAS KNOWN BLOOD CLOTS. PT HAS PANCREATIC CANCER, PORT PLACED THIS PAST WEEK, DUE TO START CHEMO ON FRIDAY. PA IN TRIAGE TO ASSESS PT. RA SATS 64% IN TRIAGE, PT SPEAKING CLEAR, FULL SENTANCES WITHOUT DIFFICULTIES. Triage Nurses Notes Reviewed? yes Onset: Abrupt Duration: day(s): (2), changing over time, continues in ED, getting worse Timing: recent history Injury Environment: home Severity: moderate, severe Severity Numbers: 8 No Modifying Factors: none HPI: 62-year-old male past medical history of metastatic pancreatic cancer, DVT/PE since her evaluation of pain swelling and redness in the right lower extremity and shortness of breath. Patient was admitted to the hospital 2 weeks ago with a large right lower extremity obstructing clot as well as a pulmonary embolism. Patient had an IVC filter placed and was started on a ELIQUIS. Patient states that he had a port placed on Friday and his ELLIQUIS had been held the day before and the day of the procedure. He states that yesterday he noticed that the swelling in his right leg had returned as well as severe pain and redness. He also reports is been having shortness of breath on exertion. He denies any chest pain or hemoptysis no fever. He has not started chemotherapy at that is due to start this Friday. (Roscoe BURNETT,Terry) Reconcile Medications Cyanocobalamin (Vitamin B-12) 1,000 MCG TABLET 1 TAB PO DAILY VITAMIN SUPPORT (Reported) Enoxaparin Sodium (Lovenox) 80 MG/0.8 ML SYRINGE 80 MG SC BID blood thinner . Metformin HCl (Metformin HCl ER) 500 MG TAB.ER.24H 1 TAB PO DAILY DM ( Reported) Metoprolol Tartrate 25 MG TABLET 0.5 TAB PO BID sinus tachycardia please follow up with your PCP. Multiple Vitamin (Multivitamins) 1 EACH TABLET 1 TAB PO DAILY SUPPLEMENT ( Reported) [place]-3 Fatty Acids/Fish Oil (Fish Oil 1,000 MG Softgel) (Unknown Strength) CAPSULE (Unknown Dose) PO DAILY SUPPLEMENT (Reported) Oxycodone HCl 5 MG TABLET 1-2 TAB PO Q4-6 PRN PRN PAIN (Reported) Zolpidem Tartrate 5 MG TABLET 1 TAB PO QHS SLEEP (Reported) (Bethany ERICKSON,Tres Lerner) Past History Travel History Traveled to [facility] past 21 day No Medical History Any Pertinent Medical History? see below for history Neurological: NONE EENT: NONE Cardiovascular: NONE Respiratory: NONE Gastrointestinal: PANCREATIC CANCER Hepatic: NONE Renal: NONE Musculoskeletal: DVT Psychiatric: insomnia Endocrine: takes metformin 2/2 panc ca glucose control Cancer(s): pancreatic cancer (liver mets) History of MRSA: No History of VRE: No History of CDIFF: No Surgical History Surgical History: cbd stent Psychosocial History Who do you live with Patient/Self Services at Home None What is your primary language Lithuanian Tobacco Use: Current Daily Use Daily Tobacco Use Amount/Type: => 5 Cigarettes daily Family History Family History, If Any: MOTHER (kidney cancer). Hx Contributory? No (Terry Mcleod) Review of Systems Review of Systems Constitutional: Reports: no symptoms. EENTM: Reports: no symptoms. Respiratory: Reports: see HPI, short of breath. Cardiovascular: Reports: peripheral edema. GI: Reports: no symptoms. Genitourinary: Reports: no symptoms. Musculoskeletal: Reports: muscle pain. Skin: Reports: erythema. Neurological/Psychological: Reports: no symptoms. Hematologic/Endocrine: Reports: no symptoms. Immunologic/Allergic: Reports: no symptoms. All Other Systems: Reviewed and Negative (Terry Mcleod) Physical Exam Physical Exam General Appearance: well developed/nourished, alert, awake, moderate distress Head: atraumatic, normal appearance Eyes: Bilateral: normal appearance, PERRL, EOMI. Ears, Nose, Throat: normal pharynx, normal ENT inspection, hearing grossly normal Neck: normal inspection, supple, full range of motion, NO JVD Respiratory: chest non-tender, no respiratory distress, wheezing Cardiovascular: regular rate/rhythm, normal peripheral pulses Peripheral Pulses: 2+ radial (R), 2+ radial (L) Gastrointestinal: soft, non-tender Back: normal inspection, normal range of motion, no vertebral tenderness Extremities: THE RIGHT LOWER EXTREMITY IS DIFFUSELY SWOLLEN AND MILDLY ERYTHEMATOUS. cALF IS TENDER TO PALPATION. nO FOCAL FLUCTUANT AREAS OR DISCHARGE NO BROKEN SKIN. nEUROVASCULAR SUPPLY INTACT Neurologic/Psych: no motor/sensory deficits, awake, alert, oriented x 3, normal gait Skin: intact, normal color, warm/dry Core Measures ACS in differential dx? Yes CVA/TIA Diagnosis: No Sepsis Present: No Sepsis Focused Exam Completed? No (Roscoe BURNETT,Terry) Progress Differential Diagnoses I considered the following diagnoses in my evaluation of the patient: [DVT, post DVT syndrome, cellulitis, pulmonary embolism, pneumonia, COPD exacerbation, acute coronary syndrome, malignancy] Plan of Care: Orders Procedure Date/time Status Discharge Patient 04/12 UNK Active Transfer Disposition 04/11 2209 Active Transfer patient to 04/11 2118 Active EKG 04/11 2056 Active Current Medications Sig/Elijah Start time Last Medication Dose Stop Time Status Admin Metoprolol Tartrate 12.5 MG BID 04/11 2199 CAN (Lopressor) Laboratory Tests 04/12/17 0610: Anion Gap 7, Estimated GFR > 60, BUN/Creatinine Ratio 16.0, CBC w Diff NO MAN DIFF REQ, RBC 3.65 L, MCV 99.8 H, MCH 33.6 H, MCHC 33.7, RDW 13.2, MPV 9.6, Gran % 54.4, Lymphocytes % 30.9, Monocytes % 8.7, Eosinophils % 5.4 H, Basophils % 0.6, Absolute Granulocytes 5.2, Absolute Lymphocytes 3.0, Absolute Monocytes 0.8 H, Absolute Eosinophils 0.5, Absolute Basophils 0.1 Patient seen and evaluated. On initial evaluation patient was tachypneic and appeared to be in significant pain. His right lower extremity is diffusely swollen and tender to palpation. No focal fluctuant areas or discharge. He also has some diffuse wheezing auscultated bilaterally. Patient is never really hypoxic to the 60s and 70s at triage. Some oxygen. This was confirmed with multiple oxygen saturation devices. Patient does report shortness of breath on exertion. A CTA was ordered to reassess his chest and an ultrasound of the right lower extremity. The radiologist currently unable to report if the PE is worse or improved from previous. Patient was medicated with DuoNeb and Percocet. On reevaluation is doing much better. His oxygen saturations IS in the mid 90s on room air on reevaluation. Patient was ambulated and desaturated to 90% and became to. Blood work shows a mildly elevated white blood cell count of 16,000. Due to patient's large clot burden and his significant hypoxia on initial presentation patient will be admitted for observation. Discharge the patient prematurely could result in negative health effects include . Patient will be monitored. he'll need serial labs, monitoring of vital signs, pain control, DuoNeb, pulmonology consult, anticoagulation, oncology consult. Case discussed with Dr. Sims he agrees Diagnostic Imaging: Viewed by Me: CT Scan, Ultrasound. Discussed w/RAD: CT Scan, Ultrasound. Radiology Impression: PATIENT: VIRAJ DOMINGUEZ PRESENT AGE: 62 PATIENT ACCOUNT NO: [id number] : 56 LOCATION: [facility] ORDERING PHYSICIAN: Terry BURNETT SERVICE DATE: 04/10/17 EXAM TYPE: CAT - CTA CHEST-PULMONARY EMBOLISM EXAMINATION: CT PULMONARY EMBOLISM STUDY CLINICAL INFORMATION: Shortness of breath, chest pain, hypoxia. COMPARISON: The report from 03/27/2017 is reviewed. Images are not available for immediate comparison. TECHNIQUE: Contiguous helical images of the chest were obtained following the administration of IV contrast. Multiplanar reconstructions were performed. MIPS were obtained and reviewed. DLP: 180 mGy-cm. CONTRAST: 95 mL of Optiray 320 were administered without incident. FINDINGS: The heart is of normal size. There is no pericardial effusion. The great vessels are unremarkable. Specifically, there is no pulmonary arterial filling defect. There is a filling defect noted within the branches of the right upper and lower pulmonary artery indicative of pulmonary embolism. There is also filling defect within the branches of the left lower lobe pulmonary artery. There are no chest wall masses. Review of lung windows demonstrates that there are neither pleural effusions nor pneumothoraces. Within the posterior basal segment of the right lower lobe, there is patchy groundglass opacification. Limited evaluation of the upper abdomen demonstrates that the liver is of normal size and attenuation. There are numerous low-attenuation lesions within the liver. Normal adrenal glands are identified. A biliary stent is in place. There is biliary gas present. IMPRESSION: Bilateral pulmonary emboli. It is noted that bilateral pulmonary emboli were described on the prior report. However, that is not available for review at this time. Thus, I am uncertain as to whether the degree of bilateral emboli is more prominent than on the prior exam. Numerous low-attenuation lesions present within the liver suspicious for metastatic disease. Patchy opacification within the posterior basal segment of the right lower lobe. The aforementioned was communicated to Dr. Malhotra at 1853 hours., PATIENT: VIRAJ DOMINGUEZ PRESENT AGE: 62 PATIENT ACCOUNT NO: [id number] : 56 LOCATION: [facility] ORDERING PHYSICIAN: Terry BURNETT SERVICE DATE: 04/10/17 EXAM TYPE: US - US-DUPLEX VENOUS EXTREM UNI EXAMINATION: DOPPLER VENOUS ULTRASOUND EXTREMITY, LEFT CLINICAL INFORMATION: Right lower extremity pain and swelling. COMPARISON: 03/27/2017. TECHNIQUE: Grayscale, Doppler and spectral analysis of the lower extremity was performed. FINDINGS: There is persistent occlusive thrombus within the right lower extremity within the common femoral vein. This extends into the popliteal vein and proximal calf veins. ADDITIONAL FINDINGS: No Lauren's cyst is identified. IMPRESSION: Persistent chronic occlusive right lower extremity deep venous thrombosis. DICTATED BY: Frnacis Luna MD DATE/TIME DICTATED:04/10/171840 REGISTERED NURSING PROFESSOR:SAVANAH DATE/TIME TRANSCRIBED:04/10/171840 CONFIDENTIAL, DO NOT COPY WITHOUT APPROPRIATE AUTHORIZATION. <Electronically signed in Other Vendor System> Initial ED EKG: normal sinus rhythm, no ST T wave changes (Terry Mcleod) Departure Departure Disposition: STILL A PATIENT Condition: Stable Clinical Impression Primary Impression: Pulmonary embolism Qualifiers: Pulmonary embolism type: other Chronicity: acute Acute cor pulmonale presence: without acute cor pulmonale Qualified Code: I26.99 - Other pulmonary embolism without acute cor pulmonale Referrals: Kathy Silva MD (PCP/Family) Departure Forms: Customer Survey General Discharge Information Observation Note Spoke With: Zulma Julian MD Physician Advisor Notified: ANGEL ERICKSON,VINAYAK Christensen Place Patient In: Non-ED OBS Care Area Rationale for Observation: My rational for observation is as follows patient has a PE and the radiologist is unable say whether it better or worse than before. He was significantly hypoxic and tachypneic on presentation. He desaturates to 90% on room air with exertion. [serial labs, follow-up radiology report, oncology consult, anticoagulation, pulmonology consult]. (Terry Mcleod) Departure Prescriptions: Current Visit Scripts Enoxaparin Sodium (Lovenox) 80 MG SC BID #60 VIAL . Metoprolol Tartrate 0.5 TAB PO BID #30 TAB please follow up with your PCP. PA/WRITING CENTER DIRECTOR Co-Sign Statement Statement: ED Attending supervision documentation- [] I saw and evaluated the patient. I have also reviewed all the pertinent lab results and diagnostic results. I agree with the findings and the plan of care as documented in the PA's/WRITING CENTER DIRECTOR's documentation. [X] I have reviewed the ED Record and agree with the PA's/WRITING CENTER DIRECTOR's documentation. [] Additions or exceptions (if any) to the PAs/WRITING CENTER DIRECTOR's note and plan are summarized below: [] (Bethany ERICKSON,Tres Lerner) Critical Care Note Critical Care Note Critical Care Time: 30-74 min (Terry Mcleod)
--- NOTE | 2017-04-10 18:45 | ULTRASOUND REPORT ---
EXAMINATION: DOPPLER VENOUS ULTRASOUND EXTREMITY, LEFT CLINICAL INFORMATION: Right lower extremity pain and swelling. COMPARISON: 03/27/2017. TECHNIQUE: Grayscale, Doppler and spectral analysis of the lower extremity was performed. FINDINGS: There is persistent occlusive thrombus within the right lower extremity within the common femoral vein. This extends into the popliteal vein and proximal calf veins. ADDITIONAL FINDINGS: No Lauren's cyst is identified. IMPRESSION: Persistent chronic occlusive right lower extremity deep venous thrombosis.
--- NOTE | 2017-04-10 18:55 | CT SCAN REPORT ---
EXAMINATION: CT PULMONARY EMBOLISM STUDY CLINICAL INFORMATION: Shortness of breath, chest pain, hypoxia. COMPARISON: The report from 03/27/2017 is reviewed. Images are not available for immediate comparison. TECHNIQUE: Contiguous helical images of the chest were obtained following the administration of IV contrast. Multiplanar reconstructions were performed. MIPS were obtained and reviewed. DLP: 180 mGy-cm. CONTRAST: 95 mL of Optiray 320 were administered without incident. FINDINGS: The heart is of normal size. There is no pericardial effusion. The great vessels are unremarkable. Specifically, there is no pulmonary arterial filling defect. There is a filling defect noted within the branches of the right upper and lower pulmonary artery indicative of pulmonary embolism. There is also filling defect within the branches of the left lower lobe pulmonary artery. There are no chest wall masses. Review of lung windows demonstrates that there are neither pleural effusions nor pneumothoraces. Within the posterior basal segment of the right lower lobe, there is patchy groundglass opacification. Limited evaluation of the upper abdomen demonstrates that the liver is of normal size and attenuation. There are numerous low-attenuation lesions within the liver. Normal adrenal glands are identified. A biliary stent is in place. There is biliary gas present. IMPRESSION: Bilateral pulmonary emboli. It is noted that bilateral pulmonary emboli were described on the prior report. However, that is not available for review at this time. Thus, I am uncertain as to whether the degree of bilateral emboli is more prominent than on the prior exam. Numerous low-attenuation lesions present within the liver suspicious for metastatic disease. Patchy opacification within the posterior basal segment of the right lower lobe. The aforementioned was communicated to Dr. Malhotra at 1853 hours.
--- NOTE | 2017-04-10 21:48 | History & Physical ---
Clara ERICKSON,Tiffanie 04/10/17 2147: General Information and HPI MD Statement: I have seen and personally examined VIRAJ DOMINGUEZ and documented this H&P. The patient is a 62 year old M who presented with a patient stated chief complaint of [RLE SWELLING]. Source of Information: patient, old records Exam Limitations: no limitations History of Present Illness: 62-year-old male with past medical history of recently diagnosed pancreatic adenocarcinoma, bilateral lower extremity DVT and pulmonary embolus presents to the ED complaining of pain and swelling with right leg which started one and half days ago. The patient described the pain as aching 8/10 in severity and increase with walking and standing and decreased with lying down. Patient was recently hospitalized on 03/27 for bilateral DVT and PE for which he received IV heparin and was started on by mouth Eliquis. Patient had IVC filter placed last week. For which he had to stop taking Eliquis for 1.5 days and after which was started on Eliquis 5 mg BID daily instead of twice a day. The patient was concerned that this was a low dose for him and it Might have aggraviated his symp. Patient also reports having fatigue, exertional shortness of breath, unintentional weight loss of 50 pounds over the past 5 months Patient had a Port-A-Cath placed last Friday, he is supposed to receive chemotherapy for pancreatic cancer next Friday, he follow-up with Dr. Allison ER course: desaturated to 64% as was the speaking full clear sentences and denied any shortness of breath. Later he was ambulated without oxygen and was saturating at 90% Allergies/Medications Allergies: Coded Allergies: No Known Allergies (03/27/17) Home Med list Apixaban (Eliquis) 5 MG TABLET 1 TAB PO BID BLOOD THINNER (Reported) Cyanocobalamin (Vitamin B-12) 1,000 MCG TABLET 1 TAB PO DAILY VITAMIN SUPPORT (Reported) Metformin HCl (Metformin HCl ER) 500 MG TAB.ER.24H 1 TAB PO DAILY DM ( Reported) Multiple Vitamin (Multivitamins) 1 EACH TABLET 1 TAB PO DAILY SUPPLEMENT ( Reported) [place]-3 Fatty Acids/Fish Oil (Fish Oil 1,000 MG Softgel) (Unknown Strength) CAPSULE (Unknown Dose) PO DAILY SUPPLEMENT (Reported) Oxycodone HCl 5 MG TABLET 1-2 TAB PO Q4-6 PRN PRN PAIN (Reported) Zolpidem Tartrate 5 MG TABLET 1 TAB PO QHS SLEEP (Reported) Past History Travel History Traveled to [place] past 21 day No Medical History Neurological: NONE EENT: NONE Cardiovascular: NONE Respiratory: NONE Gastrointestinal: PANCREATIC CANCER Hepatic: NONE Renal: NONE Musculoskeletal: DVT Psychiatric: insomnia Endocrine: takes metformin 2/2 panc ca glucose control Cancer(s): pancreatic cancer (liver mets) History of MRSA: No History of VRE: No History of CDIFF: No Surgical History Surgical History: cbd stent Past Family/Social History Family History Relations & Conditions if any MOTHER (kidney cancer). Psychosocial History Services at Home: None Smoking Status: Current Everyday Smoker ETOH Use: occasional use Illicit Drug Use: denies illicit drug use Functional Ability ADLs Independent: dressing, eating, toileting, bathing. Ambulation: independent IADLs Independent: shopping, housework, finances, food prep, telephone, transportation , medication admin. Review of Systems Review of Systems Constitutional: Reports: malaise, weakness. EENTM: Denies: no symptoms. Cardiovascular: Denies: no symptoms. Respiratory: Reports: short of breath. GI: Denies: no symptoms. Genitourinary: Denies: no symptoms. Musculoskeletal: Denies: no symptoms. Skin: Denies: no symptoms. Neurological/Psychological: Denies: no symptoms. Exam & Diagnostic Data Last 24 Hrs of Vital Signs/I&O Vital Signs Date Time Temp Pulse Resp B/P B/P Pulse O2 O2 Flow FiO2 Mean Ox Delivery Rate 04/11 0113 97.9 82 18 140/80 97 04/10 1849 99.5 79 18 131/67 96 Room Air 04/10 1725 97 04/10 1651 Room Air 04/10 1522 96.7 105 18 107/75 64 Room Air Intake & Output 04/11 0800 04/11 0000 04/10 1600 Intake Total Output Total Balance Patient 174 lb 174 lb Weight Weight Reported by Patient Measurement Method Physical Exam General Appearance Alert, Oriented X3, Cooperative, No Acute Distress HEENT Atraumatic, PERRLA, EOMI, Mucous Membr. moist/pink, jaundice Neck Supple, No JVD Cardiovascular Normal S1, Normal S2, No Murmurs Lungs Clear to Auscultation, Normal Air Movement Abdomen Normal Bowel Sounds, Soft, No Tenderness Extremities right LE 2 +pittiing edma, + ve Homman sign erythema on the med aspect of the thigh and knee, small 2X2 bruise on the right groin at IVC entery site Vascular Normal Pulses Assessment/Plan Assessment: 62-year-old male with past medical history of recently diagnosed pancreatic adenocarcinoma, bilateral lower extremity DVT and pulmonary embolus presents to the ED complaining of pain and swelling with right leg which started one and half days ago. The patient described the pain as aching 8/10 in severity and increase with walking and standing and decreased with lying down. Vital signs on admission: Blood pressure 107/75, pulse 105, temp 96.7, pulse ox 64 initially and improved to 97. Pertinent labs on admission: WBC 16.8, hemoglobin 14.6, acetone 70, sodium 136, potassium 3.6, alkaline phosphatase 352, proBNP 929, glucose 199, UA was normal CTA chest: Bilateral pulmonary emboli. It is noted that bilateral pulmonary emboli were described on the prior report. However, that is not available for review at this time. Thus, I am uncertain as to whether the degree of bilateral emboli is more prominent than on the prior exam. Numerous low-attenuation lesions present within the liver suspicious for metastatic disease. Patchy opacification within the posterior basal segment of the right lower lobe. Doppler :Persistent chronic occlusive right lower extremity deep venous thrombosis. RLE DVT S/P IVC, PE on ELiquis: GIven his history of extensive DVT in the context of Pancreatic cancer , we have to r/o phlegmasia alba dolorens. Observe on gen med Vascular consult was placed, will follow-up on the recommendation Continue Eliquis 5 mg twice a day Leg elevation Pain managment with Tylenol,Percost and Morphine Type 2 diabetes mellitus Hold Home meds Insulin sliding scale Fingerstick glucose Full code DVT prophylaxis was Eliquis Consistent carbohydrate diet As Ranked By This Provider Problem List: 1. Pancreatic cancer 2. DVT (deep venous thrombosis) 3. Pulmonary emboli Qualifiers Pulmonary embolism type: other Chronicity: acute Acute cor pulmonale presence: without acute cor pulmonale Qualified Code: I26.99 - Other pulmonary embolism without acute cor pulmonale Core Measures/Misc (11/10) Acute Coronary Syndrome ACS Diagnosis: No Congestive Heart Failure Congestive Heart Failure Diagnosis No Cerebrovascular Accident CVA/TIA Diagnosis: No VTE (View Protocol) VTE Risk Factors Age>40 No Mechanical VTE Prophylaxis d/t DVT (suspected/known) No VTE Pharm Prophylaxis d/t NA PharmProphylax ordered Sepsis (View protocol) Sepsis Present: No Amari Dyer 04/11/17 0229: Resident Review Statement Resident Statement: examined this patient, discussed with r d internship, agreed with r d internship, discussed with family, reviewed EMR data (avail), discussed with nursing , discussed with case mgmt, reviewed images, amended to note Other Findings: This is 62-year-old male with medical history of recently diagnosed pancreatic adenocarcinoma, bilateral lower extremity DVT and pulmonary embolus. He presents to the emergency department complaining of pain and swelling of the right lower extremity which started one and half days ago. Patient was recently discharged from the hospital on March 29 to be diagnosed with bilateral lower extremity DVT and pulmonary embolism and he was placed on liquids per oncology recommendation. Patient stated that he get his Port-A-Cath to start his chemotherapy last Friday and at that time his liquids was stopped for the procedure. Patient stated that he was a started chemotherapy next week. Also patient got IVC filter placed one week after his most recent discharge from the hospital. According to the ED staff patient has low oxygen saturation in the 70s on initial presentation. Physical examination, laboratory and imaging as above. Problem list: -Hypoxia that can be due to underlying pulmonary embolism. 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 -Recently diagnosed DVT and PE currently on Eliquis -Recently diagnosed adenocarcinoma pancreas -Chronic leukocytosis Plan: -Admit patient to general medicine floor -Vitals every shift -Continue home dose of her Eliquis -Vascular surgery for further assessment of the underlying right lower DVT -TRC nebs as needed -Accu-Chek, insulin sliding scale -Diabetic diet -Continue rest of his home medication -Pain pathway -DVT prophylaxis on the Eliquis Zulma Julian 04/11/17 0520: Attending MD Review Statement Attending Statement Attending MD Statement: examined this patient, discuss w/resident/PA/BRIDGE CARPENTER, agreed w/resident/PA/BRIDGE CARPENTER, reviewed EMR data (avail), reviewed images, amended to note Attending Assessment/Plan: CC: right lower extremity swelling PMH: recently diagnosed DM and pancreatic cancer, DVT and PE s/p IVC filter placement and Port placement on right side Patient was recently admitted for DVT and PE and was discharged on March 29 on Eliquis. After discharge patient followed up outpatient with vascular and IVC filter was placed followed by which patient also underwent port placement on right side on Friday. For the port placement, his anticoagulation was held for one and half day and then it was decreased to 5 mg twice a day as scheduled. Patient was worried that it might be low dose for him and then today he noticed worsening of right lower extremity swelling, pain and redness so he came to ER. While in the ER patient desaturated to 64% but was speaking full clear sentences without any evidence of tachypnea or tachycardia. Other than worsening right lower extremity swelling patient does not endorse any complaints, no fever or chills, no urinary symptoms, no worsening of cough or shortness of breath, no dizziness or passing out episodes. Patient is anxious about starting chemotherapy on Friday. On ER he was ambulated without oxygen and he was saturating at 90%. Vitals: Temperature 99.5, pulse 105, blood pressure 107/75, saturating 97% on room air. On exam: A O 3, cooperative, no acute distress, neck supple, JVD normal, no lymphadenopathy, mucosa moist, no focal neurological deficit, no dependent edema , CVS: S1-S2, RRR. RS: Clear to auscultate bilaterally. Abdomen: Soft, NT, ND, bowel sounds present. Right lower extremity appear enlarged as compared to left lower extremity (as compared to previous hospitalization, I had admitted him at the time) more so in the thigh area in the medial aspect with mild redness but not warm or tender to touch. The vascular access site on the right groin has mild tenderness and small bruise. Assessment and plan 62-year-old male with recently diagnosed pancreatic cancer and DVT with PE currently on Eliquis status post IVC filter placement and port placement on right side for chemotherapy to be started on Friday for pancreatic cancer presented in ER for worsening of her right lower extremity swelling and redness with pain. Patient is concerned that his Eliquis was held when the port was placed on Friday, which may worsen his DVT. He was found to have hypoxia at arrival which improved with nebulization. Currently clear to auscultate. CTA repeated which confirms the previous PE but does not mention about any worsening. I think patient is developing post DVT syndrome, less likely significantly occlusive iliofemoral thrombus but he would benefit from observation of this worsening right lower extremity swelling. DVT Doppler was obtained which confirmed persistent chronic occlusive right lower extremity DVT. + Hypoxia: unclear etiology + Post DVT syndrome + Recently diagnosed DVT and PE + Recently diagnosed adenocarcinoma pancreas + Chronic leukocytosis + History of DM - Place in observation on GEN med - Continue home doses of Eliquis - Obtain vascular opinion for worsening right lower extremity edema and redness - Inform oncologist about patient being in hospital - Ambulatory saturations - Continue sliding scale insulin - Adequate pain management
--- NOTE | 2017-04-11 09:21 | PN- Housestaff ---
Melissa Lindsay Monty David 04/11/17 0920: Subjective Follow-up For: #Hypoxia: unclear etiology #Post DVT syndrome #DVT/PE #pancreatic adenocarcinoma #Chronic leukocytosis #History of DM Subjective: no overnight event. Review of Systems Constitutional: Reports: see HPI. Objective Last 24 Hrs of Vital Signs/I&O Vital Signs Date Time Temp Pulse Resp B/P B/P Pulse O2 O2 Flow FiO2 Mean Ox Delivery Rate 04/11 1120 Room Air Room Air 04/11 0737 98.7 72 18 118/58 96 04/11 0113 97.9 82 18 140/80 97 04/10 1849 99.5 79 18 131/67 96 Room Air 04/10 1725 97 04/10 1651 Room Air 04/10 1522 96.7 105 18 107/75 64 Room Air Intake & Output 04/11 1600 04/11 0800 04/11 0000 Intake Total Output Total Balance Patient 78.925 kg 78.925 kg Weight Weight Standing Scale Measurement Method Physical Exam General Appearance: Alert, Oriented X3, Cooperative, No Acute Distress Cardiovascular: Regular Rate Lungs: Clear to Auscultation, Normal Air Movement Current Medications: Current Medications Sig/Elijah Start time Last Medication Dose Route Stop Time Status Admin Acetaminophen 650 MG Q6P PRN 04/11 0015 AC PO Albuterol Sulfate 3 ML ONCE ONE 04/10 1645 DC 04/10 INH 04/10 1646 1650 Apixaban 5 MG BID 04/11 1000 AC PO Apixaban 5 MG ONCE ONE 04/11 0230 DC 04/11 PO 04/11 0231 0529 Insulin Aspart 0 TIDAC 04/11 0800 AC SC Ipratropium [place] 2.5 ML ONCE ONE 04/10 1645 DC 04/10 INH 04/10 1646 1650 Morphine Sulfate 2 MG Q4P PRN 04/11 0015 AC IV Nicotine 21 MG DAILY 04/11 1000 AC TOP Oxycodone/ 0 .STK-MED ONE 04/11 0631 DC Acetaminophen PO Oxycodone/ 0 .STK-MED ONE 04/11 0116 DC Acetaminophen PO Oxycodone/ 2 TAB Q6P PRN 04/11 0015 AC 04/11 Acetaminophen PO 1206 Oxycodone/ 0 .STK-MED ONE 04/10 1732 DC Acetaminophen PO Oxycodone/ 1 TAB ONCE ONE 04/10 1615 DC 04/10 Acetaminophen PO 04/10 1616 1728 Zolpidem Tartrate 5 MG AT BEDTIME 04/11 2200 AC PO Zolpidem Tartrate 0 .STK-MED ONE 04/11 0115 DC PO Zolpidem Tartrate 5 MG .[QHS] 04/11 0015 DC 04/11 PO 0118 Last 24 Hrs of Lab/Art Results Last 24 Hrs of Labs/Mics: Laboratory Tests 04/10/172011: Urine Color YEL, Urine Clarity CLEAR, Urine pH 7.0, Ur Specific [place] <= 1.005 , Urine Protein NEG, Urine Ketones TRACE H, Urine Nitrite NEG, Urine Bilirubin NEG, Urine Urobilinogen 1.0, Ur Leukocyte Esterase NEG, Ur Microscopic EXAM NOT REQUIRED, Urine Hemoglobin NEG, Urine Glucose NEG 04/10/17 1526: Anion Gap 15, Estimated GFR > 60, BUN/Creatinine Ratio 13.3, Glucose 199 H, Calcium 9.4, Total Bilirubin 1.1, AST 29, ALT 36, Alkaline Phosphatase 332 H, Troponin I < 0.01, [id number] Pept 929 H, Total Protein 6.3, Albumin 3.5 , Globulin 2.8, Albumin/Globulin Ratio 1.3, CBC w Diff NO MAN DIFF REQ, RBC 4.30 L, MCV 101.0 H, MCH 34.0 H, MCHC 33.6, RDW 13.3, MPV 9.2, Gran % 73.7, Lymphocytes % 17.1 L, Monocytes % 6.6, Eosinophils % 2.2, Basophils % 0.4, Absolute Granulocytes 11.7 H, Absolute Lymphocytes 2.7, Absolute Monocytes 1.0 H, Absolute Eosinophils 0.3, Absolute Basophils 0.1 Assessment/Plan Assessment: Mr. Garcia is a 62-year-old male with past medical history of recently diagnosed pancreatic adenocarcinoma, bilateral lower extremity DVT and pulmonary embolus presents to the ED complaining of pain and swelling with right leg which started one and half days ago. The patient described the pain as aching 8/10 in severity and increase with walking and standing and decreased with lying down. Vital signs on admission: BP 107/75, pulse 105, temp 96.7, pulse ox 64 initially and improved to 97. WBC 16.8, hemoglobin 14.6, acetone 70, sodium 136, potassium 3.6, alkaline phosphatase 352, proBNP 929, glucose 199, UA was normal CTA chest: Bilateral pulmonary emboli. It is noted that bilateral pulmonary emboli were described on the prior report. However, that is not available for review at this time. Thus, I am uncertain as to whether the degree of bilateral emboli is more prominent than on the prior exam. Numerous low-attenuation lesions present within the liver suspicious for metastatic disease. Patchy opacification within the posterior basal segment of the right lower lobe. BLE Doppler :Persistent chronic occlusive right lower extremity deep venous thrombosis. RLE DVT S/P IVC, PE on ELiquis: - Continue obs on gen med - Pending Vascular consult - Pending hemonc consult from Dr. Hawley for management with anticoagulation. - Continue leg elevation. - Continue eliquis 5mg BID pending above consults. - Pain managment with Tylenol,Percost and Morphine Type 2 diabetes mellitus - Hold Home meds - Continue Insulin sliding scale with AccuCheks Full code DVT prophylaxis was Eliquis Consistent carbohydrate diet Problem List: 1. Pancreatic cancer 2. DVT (deep venous thrombosis) 3. Pulmonary emboli Pain Ratin Pain Location: NA Pain Goal: Remain pain free Pain Plan: see AP Tomorrow's Labs & Rationales: CBC/BEP Corina Espinoza 04/11/17 1219: Attending MD Review Statement Attending Statement Attending MD Statement: examined this patient, discuss w/resident/PA/TOP SCREW, agreed w/resident/PA/TOP SCREW, discussed with family, reviewed EMR data (avail), discussed with nursing, discussed with case mgmt, reviewed images, amended to note Attending Assessment/Plan: Assessment and plan 62-year-old male with recently diagnosed pancreatic cancer and DVT with PE currently on Eliquis status post IVC filter placement and port placement on right side for chemotherapy to be started on Friday for pancreatic cancer presented in ER for worsening of her right lower extremity swelling and redness with pain. DVT present. CTA repeat PE+ (not sure if worsening). He was on eliquis and medication continued by admitting physician. 1 Hypoxia: unclear etiology 2 Post DVT syndrome 3 Recently diagnosed DVT and PE 4 Recently diagnosed adenocarcinoma pancreas 5 Chronic leukocytosis 6 History of DM - Place in observation on GEN med - Continue home doses of Eliquis, hematology consult. - Ambulatory saturations f/u. - Continue sliding scale insulin - Adequate pain management - If patient ambulatory saturation not worsening and not depicting any acute signs/symptoms of PE then will not treat as failure of eliquis. Also obtain previous medical records.
[2017-04-11 14:15] VITALS: BP 125/78
--- NOTE | 2017-04-11 14:41 | Patient Discharge Instructions ---
Discharge Instructions General Discharge Information You were seen/treated for: #Hypoxia #Post DVT syndrome #DVT/PE #pancreatic adenocarcinoma #Chronic leukocytosis #History of DM Special Instructions: - Please follow up with Dr. Hawley for your Eliquis dose and chemotherapy. - Please follow up with your primary care physician within 1-2 week of discharge. Inform your primary care physician of this admission to [facility]. - Continue your current medications per discharge instructions. Follow up with Vascular as outpatient - Please watch for these problems: Fever, Chills, Nausea, Vomiting, Shortness of Breath, Productive Cough, Chest Pain/Discomfort, Abdominal Pain, Active Bleeding or Bloody urine/stool. Diet Continue normal diet: Yes Activity Full Activity/No Limits: Yes Acute Coronary Syndrome Inclusion Criteria At DC or during hospital stay patient has or had the following: ACS DIAGNOSIS No Discharge Core Measures Meds if any: Prescribed or Continued at Discharge Meds if any: NOT Prescribed or Continued at Discharge Congestive Heart Failure Inclusion Criteria At DC or during hospital stay patient has or had the following: CHF DIAGNOSIS No Discharge Core Measures Meds if any: Prescribed or Continued at Discharge Meds if any: NOT Prescribed or Continued at Discharge Cerebrovascular accident Inclusion Criteria At DC or during hospital stay patient has or had the following: CVA/TIA Diagnosis No Discharge Core Measures Meds if any: Prescribed or Continued at Discharge Meds if any: NOT Prescribed or Continued at Discharge Venous thromboembolism Inclusion Criteria VTE Diagnosis Yes VTE Type Deep Venous Thrombosis VTE Confirmed by (Test) EXT BILATERAL VENOUS DOPP Discharge Core Measures - Per Current guidelines, there needs to be overlap - treatment for the first 5 days of Warfarin therapy. - If discharged on Warfarin prior to 5 days of - overlap therapy, the patient will need to be - assessed for post discharge needs including - *Post discharge parental anticoagulation - *Warfarin and/or parental anticoagulation education - *Follow up date to check INR post discharge At least 5 days overlap therapy as Inpatient No Why was Parental Med stopped Other Anticoagulant given Meds if any: Prescribed or Continued at Discharge Warfarin No Overlap Therapy No Note: Overlap Therapy is Warfarin and Anticoagulant Meds if any: NOT Prescribed or Continued at Discharge No Warfarin d/t Prescribed other Anticoag No Overlap Therapy d/t Prescribed other Anticoag
[2017-04-11 17:07] LABS: ABSOLUTE BASOPHIL COUNT 0.1 /CUMM (0.0-0.2); ABSOLUTE EOSINOPHIL COUNT 0.3 /CUMM (0.0-0.7); ABSOLUTE GRANULOCYTE CT 8.1 /CUMM (1.4-6.5); ABSOLUTE LYMPH COUNT 2.5 /CUMM (1.2-3.4); ABSOLUTE MONOCYTE COUNT 0.9 /CUMM (0.10-0.60); BASOPHIL % 0.6 % (0.0-2.0); EOSINOPHIL % 2.8 % (0-5); GRANULOCYTE % 67.7 % (42.2-75.2); HEMATOCRIT 39.4 % (42-52); MEAN CORPUSCULAR HGB 34.1 PG (27.0-31.0); MEAN CORPUSCULAR HGB CONC 34.2 G/DL (33.0-37.0); MEAN CORPUSCULAR VOLUME 99.7 FL (80.0-94.0); MEAN PLATELET VOLUME 9.1 FL (7.4-10.4); PLATELET COUNT 126 /CUMM (130-400); RBC DISTRIBUTION WIDTH 13.4 % (11.5-14.5); RED BLOOD CELL CT 3.95 /CUMM (4.70-6.10)
--- NOTE | 2017-04-11 21:44 | Event Note ---
Event Note Event Note: S: Pt tachy to 130s B: Pt admitted for DVT/ bilateral PE A/R: EKG earlier in 16:13 revealed HR 129. Repeat EKG this evening 21:09 revealed HR 136. Examined patient who was tachy to 130s+. Pt stated he was not anxious. Pt on eliquis 5mg BID. Spoke with night time attending who examined the pt. Rec transferring to tele. Switching to lovenox BID as he is a cancer pt and shown to have greater efficacy to prevent recurrent PE. Also will give 0.5mg xanax as attending thought patient seemed to have some anxiety.
[2017-04-11 22:00] VITALS: BP 130/100
[2017-04-12 06:00] VITALS: BP 124/82
[2017-04-12 08:11] LABS: ABSOLUTE BASOPHIL COUNT 0.1 /CUMM (0.0-0.2); ABSOLUTE EOSINOPHIL COUNT 0.5 /CUMM (0.0-0.7); ABSOLUTE GRANULOCYTE CT 5.2 /CUMM (1.4-6.5); ABSOLUTE MONOCYTE COUNT 0.8 /CUMM (0.10-0.60); BASOPHIL % 0.6 % (0.0-2.0); EOSINOPHIL % 5.4 % (0-5); GRANULOCYTE % 54.4 % (42.2-75.2); HEMATOCRIT 36.4 % (42-52); MEAN CORPUSCULAR HGB 33.6 PG (27.0-31.0); MEAN CORPUSCULAR HGB CONC 33.7 G/DL (33.0-37.0); MEAN CORPUSCULAR VOLUME 99.8 FL (80.0-94.0); MEAN PLATELET VOLUME 9.6 FL (7.4-10.4); PLATELET COUNT 115 /CUMM (130-400); RBC DISTRIBUTION WIDTH 13.2 % (11.5-14.5); RED BLOOD CELL CT 3.65 /CUMM (4.70-6.10); WHITE BLOOD CELL COUNT 9.6 /CUMM (4.8-10.8)
--- NOTE | 2017-04-12 08:30 | PN- Housestaff ---
Kimberlyn Ortega 04/12/17 0829: Subjective Follow-up For: 1. Hypoxia: unclear etiology 2. Post DVT syndrome 3. DVT/PE 4. Hypokalemia Tele-Events Since Last Visit: ST/SB HR 59-68 Subjective: No complaints or acute events overnight. Review of Systems Constitutional: Reports: see HPI. Objective Last 24 Hrs of Vital Signs/I&O Vital Signs Date Time Temp Pulse Resp B/P B/P Pulse O2 O2 Flow FiO2 Mean Ox Delivery Rate 04/12 0907 97.9 110 18 124/82 04/12 0600 97.9 110 18 124/82 98 04/12 0047 130 130/94 04/12 0000 Room Air Room Air 04/11 2200 98.3 133 18 130/100 97 Room Air 04/11 1415 98.5 77 20 125/78 98 04/11 1120 Room Air Room Air Intake & Output 04/12 1600 04/12 0800 04/12 0000 Intake Total 100 Output Total Balance 100 Intake, Oral 100 Physical Exam General Appearance: Alert, Oriented X3, Cooperative, No Acute Distress Skin: R chem port with serosanguinous drainage on dressing Cardiovascular: Regular Rate, Normal S1, Normal S2 Lungs: Clear to Auscultation, Normal Air Movement Abdomen: Normal Bowel Sounds, Soft, No Tenderness Extremities: 2+ pitting edema on RLE Current Medications: Current Medications Sig/Elijah Start time Last Medication Dose Route Stop Time Status Admin Acetaminophen 650 MG Q6P PRN 04/11 0015 AC PO Alprazolam 0.5 MG ONCE ONE 04/11 2145 DC 04/11 PO 04/11 2146 2237 Apixaban 5 MG BID 04/11 1000 DC PO Enoxaparin Sodium 80 MG BID 04/11 2200 AC 04/12 SC 0907 Insulin Aspart 0 TIDAC 04/11 0800 04/12 SC 1205 Metoprolol Tartrate 25 MG .STK-MED ONE 04/12 0041 DC PO 04/12 0042 Metoprolol Tartrate 12.5 MG BID 04/12 0009 AC 04/12 PO 0907 Metoprolol Tartrate 12.5 MG BID 04/11 2200 CAN PO Morphine Sulfate 2 MG Q4P PRN 04/11 0015 AC 04/11 IV 2149 Nicotine 21 MG DAILY 04/11 1000 AC 04/12 TOP 0907 Oxycodone/ 2 TAB Q6P PRN 04/11 0015 AC 04/12 Acetaminophen PO 0907 Patient Medication 1 ED ONE ONE 04/11 1545 DC Teaching ED 04/11 1546 Potassium Chloride 60 MEQ ONCE ONE 04/12 0945 DC 04/12 PO 04/12 0946 1056 Zolpidem Tartrate 5 MG AT BEDTIME 04/11 2200 AC 04/12 PO 0048 Last 24 Hrs of Lab/Art Results Last 24 Hrs of Labs/Mics: Laboratory Tests 04/12/17 0610: Anion Gap 7, Estimated GFR > 60, BUN/Creatinine Ratio 16.0, CBC w Diff NO MAN DIFF REQ, RBC 3.65 L, MCV 99.8 H, MCH 33.6 H, MCHC 33.7, RDW 13.2, MPV 9.6, Gran % 54.4, Lymphocytes % 30.9, Monocytes % 8.7, Eosinophils % 5.4 H, Basophils % 0.6, Absolute Granulocytes 5.2, Absolute Lymphocytes 3.0, Absolute Monocytes 0.8 H, Absolute Eosinophils 0.5, Absolute Basophils 0.1 04/11/17 1624: CBC w Diff NO MAN DIFF REQ, RBC 3.95 L, MCV 99.7 H, MCH 34.1 H, MCHC 34.2, RDW 13.4, MPV 9.1, Gran % 67.7, Lymphocytes % 21.0, Monocytes % 7.9, Eosinophils % 2.8, Basophils % 0.6, Absolute Granulocytes 8.1 H, Absolute Lymphocytes 2.5, Absolute Monocytes 0.9 H, Absolute Eosinophils 0.3, Absolute Basophils 0.1 Assessment/Plan Assessment: Mr. Garcia is a 62-year-old male with past medical history of recently diagnosed pancreatic adenocarcinoma, bilateral lower extremity DVT and pulmonary embolus presents to the ED complaining of pain and swelling with right leg which started one and half days ago. The patient described the pain as aching 8/10 in severity and increase with walking and standing and decreased with lying down Problem list: 1. RLE DVT S/P IVC, PE on ELiquis 2. Hypokalemia Plan: * Continue Apixaban 5mg BID * Monitor and replete potassium as needed * Patient education with nursing for proper administration of Lovenox for discharge * Patient stable for discharge * Vascular recommendations appreciated Problem List: 1. DVT (deep venous thrombosis) 2. Pulmonary emboli Pain Ratin Pain Location: Chest Pain Goal: Pain 4 or less Pain Plan: Morphine Percocet Tomorrow's Labs & Rationales: None Corina Espinoza 04/12/17 1156: Attending MD Review Statement Attending Statement Attending MD Statement: examined this patient, discuss w/resident/PA/SUPERVISOR TOWER, agreed w/resident/PA/SUPERVISOR TOWER, discussed with family, reviewed EMR data (avail), discussed with nursing, discussed with case mgmt, reviewed images, amended to note Attending Assessment/Plan: Patient seen/examined bedside. Patient denies any new complaints. Patient had persistent tachycardia which is now resolved after addition of low dose b alba. He is on room air and ambulatory oxygen saturation remain acceptable. Patient anticoagualtion for PE and DVT. He has follow up on Friday for chemotherapy with Dr Hawley. Also advised to follow up with him for anticoagulation in his scenario. He appears medically stable for discharge.
[2017-04-12 09:07] VITALS: BP 124/82
[2017-04-12] MEDS ORDERED: METOPROLOL TART25 M1 PO ×3 (11:35→12:21)
[2017-04-12] MEDS ORDERED: LOVENOX80 MG/0.1 SC ×2 (11:41→12:21)
== END 2017-04-12 15:31 ==
LOC: ERH 15:12 → 2NA 21:13 → 1NO 21:13 → ERHI 21:13 → 2NA 23:30 → ENRESERV 04-11 07:15 → ENTRNSPT 04-11 07:45 → EDTRNSPT 04-11 08:01 → EDTRNSPTSTS 04-11 08:01 → 2NA 04-11 08:17 → CMPTRNSPT 04-11 09:18 → 1NO 04-11 21:57 → ENPENDDIS 04-12 13:51 → ENTRNSPT 04-12 14:44 → EDTRNSPTSTS 04-12 15:00 → EDTRNSPT 04-12 15:00 → CMPTRNSPT 04-12 15:13 → 1NO 04-12 15:31
PROVIDERS: Internal Medicine Hematology & Oncology; Physician Assistant Medical
DX: I82.511 Chronic embolism and thrombosis of right femoral vein (principal); C25.9 Malignant neoplasm of pancreas, unspecified; Z86.718 Personal history of other venous thrombosis and embolism; Z79.01 Long term (current) use of anticoagulants; C78.7 Secondary malignant neoplasm of liver and intrahepatic bile duct; G47.00 Insomnia, unspecified; F17.200 Nicotine dependence, unspecified, uncomplicated; E11.9 Type 2 diabetes mellitus without complications; Z79.4 Long term (current) use of insulin; R09.02 Hypoxemia; D72.829 Elevated white blood cell count, unspecified; E87.6 Hypokalemia; Z79.899 Other long term (current) drug therapy; R00.0 Tachycardia, unspecified
CPT/HCPCS: 1263; 36592; 81003; 82436; 93005; 93010; 96372; 96374; 96376; 99291; G0378; J1650